=== PATIENT | female | born 1955 | race Caucasian/White ===

== ENCOUNTER → 2018-01-09 08:37 | Outpatient (CLI) | payer OTHER, SELFPAY ==
--- NOTE | 2018-01-09 08:40 | BI_ITS ---
MAMMOGRAPHY - BILATERAL SCREENING REASON FOR EXAM: Female, 62 years old. Routine annual screening examination. PERTINENT HISTORY: Aunt with breast cancer. TECHNIQUE: Digital bilateral breast yandel (3D mammographic acquisition) in the CC and MLO projections. 2-D mediolateral oblique (MLO) and craniocaudad (CC) views of both breasts were obtained. CAD: Full Field Digital Mammography with Computer Added Detection was performed. COMPARISON: Comparison is made with prior study dated December 28, 2016 and December 23, 2015. FINDINGS: Breast Composition: The breasts are almost entirely fatty. There are no dominant masses or suspicious calcifications. No other significant abnormalities are identified. There has been no significant change since the prior study. BI/SCREENING MAMM (CAD), BILAT IMPRESSION: Stable bilateral screening mammogram. Yearly follow-up mammogram recommended. (A) ASSESSMENT CATEGORY: BIRADS Category 1: Negative. A letter regarding these results will be sent to the patient by the facility within 30 days. Approximately 10% of breast cancers are not detected by mammography. A normal mammogram should not delay biopsy of a clinically suspicious abnormality. [id number] Electronically Signed: Salvador Chou MD at 9:06 EDT Tel [phone], Service support ,
== END ==
PROVIDERS: Family Provider Family Medicine; PCP Family Medicine; Visit Provider Family Medicine
DX: Z12.31 Encounter for screening mammogram for malignant neoplasm of breast (principal)
CPT/HCPCS: 77063; 77067

== ENCOUNTER → 2018-01-15 11:18 | Outpatient (CLI) | payer OTHER, SELFPAY ==
--- NOTE | 2018-01-15 15:55 | STRESSREP ---
Stress Test Report Exercise stress test. 62-year-old lady with a history of dyspnea. Medications hydrochlorothiazide levothyroxine omeprazole calcium coenzyme Q 10. Stress protocol: Resting EKG demonstrates sinus rhythm with a rate of 69 bpm first-degree AV block is noted. The patient exercised according to regular Zander protocol for total duration of 3 minutes. The maximum heart rate attained was 96 bpm which was 61% of maximum predicted heart rate the maximum workload was 4.6 metabolic equivalents. The patient maintained sinus rhythm and then appeared to go into a sinus rhythm with a 2-1 conduction heart block system. Patient was noted to get short of breath. During recovery patient went back into a sinus rhythm with a first-degree AV block with a rate of 60 bpm peaking at 6 83 bpm. Patient also appeared to developed a junctional rhythm at a rate of approximately 94 bpm. There were no ST or T-wave changes noted suggest ischemia. Conclusion 1. Exercise stress test with no EKG criteria for ischemia at a low to moderate workload. Exercise-induced 2-1 heart block.
== END ==
PROVIDERS: Family Provider Family Medicine; PCP Family Medicine; Visit Provider Internal Medicine Pulmonary Disease
DX: R06.00 Dyspnea, unspecified (principal)
CPT/HCPCS: 93017

== ENCOUNTER 2018-01-20 03:40 | Emergency (ER) | payer OTHER, SELFPAY ==
[2018-01-20 03:41] VITALS: BP 168/82; PULSE 59; RESP 15; TEMP 36.8; O2SAT 99; BMI 30.6
--- NOTE | 2018-01-20 03:47 | EKG12_ITS ---
Test Reason : CP Blood Pressure : / mmHG Vent. Rate : 057 BPM Atrial Rate : 057 BPM P-R Int : 310 ms QRS Dur : 088 ms QT Int : 444 ms P-R-T Axes : -12 029 048 degrees QTc Int : 432 ms Sinus bradycardia with 2:1 AV block Otherwise normal ECG Confirmed by KIMBERLY BILLINGS, BRAD ([id number]), newspaper or periodical editor ANTONINO RAMIREZ ([id number]) on 01/25/2018 3:35:06 PM Referred By: Robert Dodd Confirmed By:BRAD HARRIS MD
--- NOTE | 2018-01-20 03:50 | RAD_ITS ---
STUDY: X-RAY CHEST REASON FOR EXAM: Female, 62 years old. Chest pain TECHNIQUE: Single AP portable view of the chest. COMPARISON: None. FINDINGS: The lungs are clear and expanded. There is no demonstrated pleural abnormality. Normal size heart. Normal mediastinum and vishal. Normal visualized pulmonary arteries. Normal visualized aortic arch and descending thoracic aorta. Normal visualized thoracic spine. Normal visualized ribs, clavicles, and shoulders. There is no demonstrated abnormality of the visualized soft tissue structures of the upper abdomen. RAD/Chest 1 View (Portable) IMPRESSION: Normal x-ray examination of the chest. Electronically Signed: Rashida Cornelius MD at 4:08 EDT Tel , Service support ,
[2018-01-20 03:51] VITALS: PULSE 81; RESP 15; O2SAT 97
--- NOTE | 2018-01-20 03:52 | NURSING ---
NO OLD EKGS IN MUSE.
[2018-01-20] MEDS: Aspirin 81 MG TAB.CHEW 324 MG PO (03:57)
[2018-01-20] MEDS: 0.9% Normal Saline 1,000 ML 150 ML IV (03:57)
[2018-01-20 04:03] LABS: Absolute Lymphocyte Count 2.12 X10^3/ul (0.83-4.51); Absolute Neutrophil Count 3.8 X10^3/uL (2.0-7.7); Basophil# 0.02 X10^3/uL; Basophil% 0.3 % (0-1); Eosinophil# 0.17 X10^3/uL; Eosinophils% 2.4 % (0-5); Hematocrit 41.7 % (37-47); Hemoglobin 14.3 g/dl (12.0-15.0); Lymphocyte # 2.12 X10^3/ul (4.0); Lymphocyte % 29.9 % (19-41); Mean Corp Hgb Conc 34.3 g/gl (32-36); Mean Corpuscular Hgb 30.6 pg (27.0-32.0); Mean Corpuscular Volume 89.3 fL (81-99); Mean Platelet Vol. 10.7 fl (6.2-12.0); Monocyte# 0.97 X10^3/uL; Monocyte% 13.7 % (0-10); Neutrophil # 3.79 X10^3/uL (2.7-7.7); Neutrophil % 53.6 % (47-70); POSITIVE COUNT NO; POSITIVE DIFFERENTIAL NO; POSITIVE MORPHOLOGY NO; Platelet Count 265 K/mm3 (150-450); RBC Distribution Width CV 12.7 % (11.6-14.6); RBC Distribution Width SD 41.5 fl (35.1-43.9); Red Blood Count 4.67 M/mm3 (4.2-5.4); White Blood Count 7.1 K/mm3 (4.4-11.0)
[2018-01-20 04:16] LABS: Anion Gap 9 (5-15); BUN 13 mg/dL (7-18); BUN/Creat Ratio 14.3 RATIO (10-20); Calcium,Total 9.2 mg/dL (8.5-10.1); Chloride 105 mmol/L (98-107); Creatinine, Serum 0.91 mg/dL (0.55-1.02); EST Glomerular Filtration Rate 66 mL/min (>60); Est Glom Filt Rate - Afr Amer 80 mL/min (>60); Estimated Creatinine Clearance 47.75 ml/min; Glucose 119 mg/dL (74-106); Potassium 3.7 mmol/L (3.5-5.1); Sodium Level 143 mmol/L (136-145)
[2018-01-20 04:51] VITALS: BP 153/84; PULSE 72; RESP 19; O2SAT 96
--- NOTE | 2018-01-20 05:51 | ED.VISSUMM ---
- ER Visit Summary Date of Service: 01/20/18 Chief Complaint: Palpitations History of Present Illness: The patient is a [address] Sim. She reports that she had a stress test 4 days ago and was called by Dr. Castelan and told that she needs to have a pacemaker placed. She is scheduled for an appointment on January 31. Patient reports that at 1:00 this morning she was awakened from sleep by palpitations. She reports that she has a fullness on the right side of her chest that is 7 out of 10 at worst and 4-10 currently. Is worsened by exertion relieved by rest. She reports that she does feel slightly short of breath when she walks around and diaphoretic. However, she reports that she has had these symptoms ever since August. Review of systems: General: No fever, chills, cold sweats. Respiratory: No cough. Gastrointestinal: No abdominal pain, nausea, vomiting, diarrhea, melena, or hematochezia. Genitourinary: No dysuria, frequency, hematuria. Skin: No rash. Neuro: No headache, numbness, weakness. Physical Examination: Vitals: Stable. Afebrile. General: Well-nourished and well-developed. Head: Normocephalic atraumatic. Neck: Supple, no lymphadenopathy. No JVD. Nontender. Cardiovascular: Regular rate and rhythm. No murmurs. Respiratory: No respiratory distress. Clear to auscultation bilaterally. Abdominal: Soft, nontender, nondistended, normal bowel sounds. No guarding, rebound, or peritoneal signs. Back: Nontender. Extremities: Nontender, no edema. Skin: Normal color, no rash. Neurologic: Alert and oriented ?3. Cranial nerves II through XII are intact. Normal strength and sensation. Psych: Normal affect. Test Results: EKG is sinus with a first-degree AV block rate of 57. Her NM interval is 310. She has 2-1 atrial/ventricular conduction. There are no ST changes. Troponin is negative. Chem-7 is more for glucose of 119. CBC is more for monocytes 14. Chest x-ray is normal. Emergency Department Course and Treatment: During her stay and emerge department the patient was in 2-1 AV conduction intermittently with a rate in the 50s-60s. She would have episodes where it appeared that she had a junctional rhythm in the 90s. She rested comfortably. Treatment Plan: Patient was discussed with Dr. Castelan. He is familiar with her rhythm and feels that it is okay for her to go on vacation in follow-up from January 31 as scheduled. Patient is happy with this plan. Again she has had symptoms similar to this since August. Return to the emergency department for any worsening symptoms. Disposition: To home in improved and stable condition. Impression: 1. First-degree AV block with 2-1 atrial/ventricular conduction. 2. Junctional tachycardia. This note was generated with [employer] software. It may contain incorrect words, spelling, and punctuation that were not noted in review of the chart prior to signing ED Disposition - Plan for ED Patient: Disposition: Home or Assisted Living Chief Complaint: Chest Pain Instructions: ED Palpitations Referrals: Low Castelan MD [STAFF PHYSICIAN] - 01/31/18
[2018-01-20 06:01] VITALS: BP 145/96; PULSE 71; RESP 12; O2SAT 96
[2018-01-20 06:02] VITALS: BP 145/96; PULSE 71; RESP 12; O2SAT 96
== END 2018-01-20 06:02 | disposition home or self-care (01) ==
PROVIDERS: Emergency Provider Emergency Medicine; Family Provider Family Medicine; PCP Family Medicine
DX: I44.0 Atrioventricular block, first degree (principal); I47.1 Supraventricular tachycardia; I10 Essential (primary) hypertension; Z79.82 Long term (current) use of aspirin; Z79.899 Other long term (current) drug therapy
CPT/HCPCS: 71045; 80048; 84484; 85025; 93005; 96360; 96361; 99284; J7030; A4216

== ENCOUNTER → 2018-02-01 08:57 | Day surgery (SDC) | payer OTHER, SELFPAY ==
[2018-01-31 11:34] LABS: Mucous, Urine 0 SEEN /hpf (<or=2+); Red Blood Cells-Urine 0 SEEN /hpf (0-5)
[2018-01-31 12:30] LABS: Color, Urine Yellow (Yellow); Glucose, Dipstick Normal (Normal); Ketone-Dipstick Negative (Negative); Leukocyte Esterase-Dipstick 100 /ul (Negative); Nitrite-Dipstick Negative (Negative); Occult Blood-Urine Negative /ul (Negative); Protein-Dipstick Negative (Negative); Specific Gravity, Urine 1.005 (1.002-1.030); Urine Bilirubin Dipstick Negative (Negative); Urine Clarity Sl. Cloudy (Clear); Urine Urobilinogen Normal (Normal)
[2018-01-31 12:58] LABS: Bacteria RARE /hpf (None Seen); Squamous Epithelial Cells - UA 0-5 SEEN /hpf (5-10); White Blood Cells 0-5 SEEN /hpf (0-5)
[2018-01-31 13:18] VITALS: BMI 30.4
--- NOTE | 2018-02-01 08:59 | ECHOD_ITS ---
Reason For Study: SOB Procedure This was a 2D Doppler, Color Flow transthoracic echocardiogram. Exam performed in department. Left Ventricle Normal LV size. Left ventricular systolic function is normal. The estimated ejection fraction is 70 %. Unable to assess diastolic dysfunction due to arrhythmia. No regional wall motion abnormalities noted. Right Ventricle Normal RV size. Normal systolic function. Atria Normal left atrium. Normal right atrium. Mitral Valve Normal mitral valve. Mild (1+) eccentric mitral valve insufficiency. Tricuspid Valve Normal tricuspid valve. Mild tricuspid valve insufficiency. Pulmonary artery systolic pressure is 18 mmHg. Aortic Valve Normal aortic valve. Mild (1+) eccentric aortic valve insufficiency. Pulmonic Valve Normal pulmonic valve. Great Vessels Normal aortic root. The pulmonary artery is normal size. Normal inferior vena cava. Pericardium/Pleural No pericardial effusion. MMode/2D Measurements & Calculations LVIDd: 3.1 cm IVSd: 1.4 cm Ao root diam: 2.7 cm LVIDs: 1.4 cm LVPWd: 0.95 cm LA dimension: 3.2 cm RVDd: 2.5 cm FS: 53.6 % LAV(MOD-bp): 30.1 ml EDV(MOD-sp4): 48.6 ml EDV(MOD-sp2): 55.1 ml LAV(MOD-bp) Indexed: 17.5 ml/m2 ESV(MOD-sp4): 14.8 ml EF(MOD-sp2): 73.0 % LAV(MOD-sp2): 29.9 ml EF(MOD-sp4): 69.4 % LAV(MOD-sp4): 27.7 ml SV(MOD-sp4): 33.7 ml SV(MOD-sp2): 40.2 ml LA A4 area: 12.2 cm2 RA A4 area: 11.3 cm2 Doppler Measurements & Calculations MV E max nathanael: 144.4 cm/sec Lat Peak E' Nathanael: 16.9 cm/sec Med Peak E' Nathanael: 17.1 cm/sec E/E' lat: 8.6 E/E' med: 8.4 Ao V2 max: 135.8 cm/sec LV V1 max: 116.4 cm/sec PA V2 max: 111.5 cm/sec Ao max P.4 mmHg LV V1 max P.4 mmHg TR max nathanael: 195.3 cm/sec TR max P.3 mmHg Interpretation Summary Normal LV size. Left ventricular systolic function is normal. The estimated ejection fraction is 70 %. Unable to assess diastolic dysfunction due to arrhythmia. Pulmonary artery systolic pressure is 18 mmHg. Ordering Physician: Low Castelan Referring Physician: Kelsey Sim M.D. Performed By: Jessica Sampson RDCS
--- NOTE | 2018-02-01 11:07 | CL.D_ITS ---
Patient Name: AUREA LANG Study Date: 02/01/2018 Performing: Low Castelan MD Ht: 61.02 inches 155 cm : 1955 Wt: 160.94 lbs 73 kg Age: 63 Gender: female BSA: 1.72 PROCEDURE(S) PERFORMED [id number]/LV CLINICAL PROFILE AND INDICATIONS Indications: Other Heart Failure: None Stress/Imaging Standard Exercise Stress Test: Yes Result: Negative CAD Presentations: No Sxs, no angina. CONCLUSIONS Minimal coronary artery disease RECOMMENDATIONS For pacemaker placement. DESCRIPTION OF PROCEDURE The patient arrived to the procedure lab. The risks and benefits of the procedure as well as a full d escription of our services here and current unavailability of surgical backup were fully explained to the patient and/or their significant other prior to the catheterization. The Timeout was completed, verifying the correct patient and procedure. The patient's procedural site was prepped and draped in the usual fashion. Local anesthetic was given subcutaneously to right radial region with Lidocaine 2% . Using a modified Seldinger technique, arterial access was obtained via the right radial artery, a 6 Fr sheath was inserted. Left Coronary Artery selective angiography was performed in multiple views u sing a 5 Fr. 4.0 Ethel catheter. Right Coronary Artery selective angiography was then performed in mu ltiple views using a 5 Fr. 4.0 Ethel catheter. Left Coronary Artery selective angiography was perform ed in multiple views using a 5 Fr. 4.0 Ethel catheter. Left Ventriculography was performed in SINHA pro jection using a 5 Fr. Pigtail catheter. LV to AO pullback pressures were then recorded.The arterial s vicenta was pulled and a TR Band was applied for hemostasis CORONARY ANGIOGRAPHY DOMINANCE: Right Dominant LEFT HEART ASSESSMENT Left Ventricular Ejection Fraction: by LV Gram 60 % Normal LV wall motion Normal Left Ventricular systolic function LEFT MAIN: 30 ostial % Stenosis LEFT ANTERIOR DECENDING ARTERY: Angiographically normal CIRCUMFLEX ARTERY: Angiographically normal RIGHT CORONARY ARTERY: PROX RCA: 30 % Stenosis COMPLICATIONS No Complications PROCEDURE MEDICATIONS Fentanyl 50 mcg IV Versed 1 mg IV Oxygen: 2 L/min via nasal cannula Heparin diluted in 23cc Heparinized saline. Patient given 10cc IA of this solution. 02/01/2018 10:45: 16 Verapamil 2.5mg, Ntg 100mcgs, 2000 units of Heparin diluted in 23cc Heparinized saline. Patient give n 10cc IA of this solution. 02/01/2018 10:45:16 SUMMARY OF HEMODYNAMIC DATA Time AIR REST ECG 09:53:45 AO 128/67 (95) SA 10:47:41 LV 118/4, 8 10:56:36 LV 121/5, 11 10:56:43 LV 125/5, 13 10:57:50 LV 132/6, 17 10:57:57 LVp 127/6, 16 10:58:00 AOp 127/68 (96) 10:58:05 Signed By oLw Castelan MD On 02/01/2018 12:24:49 PM Signed By Low Castelan MD On 02/01/2018 11:06:44 Low Castelan MD
== END ==
PROVIDERS: Family Provider Family Medicine; PCP Family Medicine; Visit Provider Internal Medicine Cardiovascular Disease
DX: I25.10 Atherosclerotic heart disease of native coronary artery without angina pectoris (principal); I44.1 Atrioventricular block, second degree; I10 Essential (primary) hypertension; E78.5 Hyperlipidemia, unspecified; E03.9 Hypothyroidism, unspecified; G47.33 Obstructive sleep apnea (adult) (pediatric); H54.40 Blindness, one eye, unspecified eye; H40.9 Unspecified glaucoma; E66.9 Obesity, unspecified; Z79.82 Long term (current) use of aspirin; Z79.1 Long term (current) use of non-steroidal anti-inflammatories (NSAID); Z79.899 Other long term (current) drug therapy
CPT/HCPCS: 81001; 93306; 93458; 99152; 99153; J7040; Q9967; C1769; C1894

== ENCOUNTER 2018-02-06 10:28 | Day surgery (SDC) | payer OTHER, SELFPAY ==
[2018-02-05 09:03] VITALS: BMI 30.4
[2018-02-06] VITALS (15 sets, daily range): BP systolic 124–151; BP diastolic 67–88; PULSE 63–101; RESP 16–18; TEMP 36.7–36.9; O2SAT 93–99
--- NOTE | 2018-02-06 13:49 | CL.IE_ITS ---
Patient: AUREA LANG Study Date: 02/06/2018 Performing: Low Castelan MD : 1955 Age: 63 Gender: female PROCEDURES PERFORMED [id number] PACER INSERT+DUAL LEADS INDICATIONS 2nd degree av block PROCEDURE DETAILS The patient was brought to the Catheterization Lab in the postabsorptive nonsedated state. Informed consent was obtained prior to the procedure. Incision was made to the left subclavicular area. Access was achieved and a guidewire was advanced into the left subclavian vein. A peel-away sheath was inse rted into the left subclavian vein. PPM ventricular lead was inserted / positioned to right ventricul ar apex. PPM ventricular lead testing performed. PPM ventricular lead testing performed. A peel-away sheath was inserted into the left subclavian vein. PPM atrial lead was inserted / positioned to the r ight atrial appendage. PPM atrial lead testing performed. The Atrial lead sutured in place with 3-0 S ilk. The Ventricular PM lead sutured in place with 3-0 Silk. Device pocket was irrigated with antibio tic. PPM generator was attached to the lead(s) and inserted into the pocket. The PPM generator was taylor tured in place with 3-0 Vicryl. Subcutaneous closure was completed with 3-0 Vicryl. Skin closure was completed with 4-0 Vicryl. Steri-strips applied to left subclavicular incision. The patient tolerate d the procedure well. Estimated Blood Loss: < 10 mls IMPLANTED / EX-PLANTED DEVICES IMPLANTED DEVICE(S): PPM Generator - Chute Greaser: PredPol, Model # l111 , Serial # [id number] PPM Atrial lead - Chute Greaser: PredPol, Model # 7740 , Serial # [id number] PPM Ventricular lead - Chute Greaser: PredPol, Model # 7741 , Serial # [id number] DEVICE PARAMETERS ATRIAL LEAD PARAMETERS: P wave (mV) - 2.5 Current (mA) - 0.8 threshold (V) - 0.5 impedence (OHMS) - 681 VENTRICULAR LEAD PARAMETERS: R wave (mV) - 24.9 current (mA) - 0.6 threshold (V) - 0.6 impedence (OHMS) - 1046 DEVICE PARAMETERS: Mode - ddd lower rate - 60 upper rate - 130 CONCLUSIONS / RECOMMENDATIONS Device Conclusions: Successful implantation of a dual chamber pacemaker Device Recommendations: follow up with heart group PROCEDURE MEDICATIONS Fentanyl 50 mcg IV Versed 1 mg IV Versed 1 mg IV Fentanyl 25 mcg IV Oxygen: 2 L/min via nasal cannula Ancef 2 Gm IV @ 02/06/2018 12:07:09 Signed By Low Castelan MD On 02/06/2018 13:49:09 Low Castelan MD
--- NOTE | 2018-02-06 17:04 | CHAPLAIN ---
Type of Pastoral Visit _x__ Initial Visit ___ Follow-up Visit ___ On-call Visit ___ General Patient Visit ___ Spiritual Assessment ___ Family Conference ___ Bereavement ___ Rapid Response ___ Code Blue ___ Other (describe below) Pastoral Care Referral From _x__ Patient _x__ Family ___ Nurse ___ Physician ___ Civil Engineering Design Draftsperson ___ Insecticide Maker ___ Other (describe below) Sacrament/Intervention _x__ Active listening ___ Anointing ___ Episcopal ___ Bereavement ___ Communion ___ Sheron exploration ___ _x__ Life review _x__ Prayer ___ Reconciliation ___ Sacrament of Sick _x__ Supportive presence ___ Wedding ___ Other (describe below) Pastoral Comments
[2018-02-06] MEDS: Atorvastatin Calcium 20 MG Tablet PO (22:01)
[2018-02-06] MEDS: Acetaminophen 325 MG Tablet PO (22:09)
[2018-02-06] MEDS: DiphenhydrAMINE 25 MG Capsule PO (22:09)
[2018-02-07 03:00] VITALS: PULSE 64
[2018-02-07 03:49] VITALS: BP 160/87; PULSE 76; RESP 18; TEMP 36.5; O2SAT 94
--- NOTE | 2018-02-07 05:30 | RAD_ITS ---
STUDY: X-RAY CHEST REASON FOR EXAM: Female, 63 years old. Pacemaker placement. TECHNIQUE: Inspiration expiration views. COMPARISON: Comparison is made with prior study dated December 26, 2017. FINDINGS: A left-sided dual-chamber pacemaker is seen. The leads appear to be in good position. EKG electrodes are seen. The lungs are clear and expanded. There is no demonstrated pleural abnormality. There is no evidence of pneumothorax. Normal size heart. Normal mediastinum and vishal. Normal visualized pulmonary arteries. Normal visualized aortic arch and descending thoracic aorta. Normal visualized thoracic spine. Normal visualized ribs, clavicles, and shoulders. There is no demonstrated abnormality of the visualized soft tissue structures of the upper abdomen. RAD/Chest PA and Lateral IMPRESSION: Status post placement of a left-sided dual-chamber pacemaker. The leads are in good position. There is no evidence of pneumothorax. Electronically Signed: Salvador Chou MD at 9:34 EDT Tel [phone], Service support ,
[2018-02-07] MEDS: Levothyroxine 75 MCG Tablet PO (05:40)
[2018-02-07 06:54] VITALS: PULSE 72
--- NOTE | 2018-02-07 08:05 | PCM.PN.CARD ---
Subjectve: Patient seen and evaluated. Appears to be doing well. Objective: Vital Signs Temp Pulse Resp BP Pulse Ox 97.7 F L 72 18 160/87 H 94 02/07/18 03:49 02/07/18 06:54 02/07/18 03:49 02/07/18 03:49 02/07/18 03:49 Oxygen Delivery Method Room Air Weight: 161 lb Body Mass Index (BMI) 30.4 Intake and Output for Last 24 Hours 02/05/18 02/06/18 02/07/18 23:59 23:59 23:59 Intake Total 375 / 375 Balance 375 / 375 General: Awake, Alert, Oriented x 3 HEENT: PERRL, EOMI, Sclera Non Icteric Neck: Supple, Good ROM, No Lymph Node Enlargement Lungs: Clear to auscultation Cardiovascular: Regular Rhythm, Normal S1, Normal S2, No Murmurs, No Rubs, No Gallops Vascular: No Carotid Bruits, Normal Femoral Pulses, Normal Radial Pulses, Normal Dorsalis Pedal Pulse, Normal Posterior Tibial Pulses Abdomen: Bowel Sounds Present, Soft, Non Tender, No HSM, No Organomegaly Extremities: No Cyanosis, No Clubbing, No edema Neurological: No Focal Motor or Sensory Deficit Rhythm: EKG: ECHO: Stress Test: Cardiac Cath: PCI: CT Surgery: Holter monitor: EPS: PPM: CXR: Chest CT Scan: Medical Necessity - Tobacco Use Smoking Status: Never smoker Assessment/Plan 1. Status post pacemaker placement. Patient had intermittent 2-1 AV block and underwent successful dual-chamber pacemaker placement yesterday. Chest x-ray today demonstrates adequate placement and pacemaker check appears to suggest normal function. Patient will be discharged for outpatient follow-up.
--- NOTE | 2018-02-07 08:06 | PCM.DC.PACE ---
Discharge Diet: No Restrictions Discharge Activity: May Not Drive Call your doctor if your incision/area has: Continuous Slow Oozing, Sudden Increased Bleeding, Increased Pain/ Swelling, Increased Redness, Foul Smelling Discharge, Swelling at the incision site Call your doctor if you observe: Fever of 101 or Higher, Shortness of breath, Dizziness, Fainting spells, Swelling in the ankles, Chest pain, Prolonged hiccoughing, Increased palpitations (irregular heartbeat) Change Dressing in (Days):: 3 Remove Dressing in (days):: 3 Cleanse incision/area with: Do not get Incision Wet, Keep Dressing Clean & Dry Additional Dressing/Incision Instructions:: When dressing is removed, wash and dry incision. Keep covered with a light bandage if it is rubbing against your clothing. Do not cover the incision with an airtight bandage. Change the bandage daily. Do not remove steri strips. The strips will fall off on their own. Additional Instructions: Signs and Symptoms to Report to Your Doctor at Once - call your doctor's office or Doctor's Registry ([phone]) Call 911 or go to the nearest Emergency Department if you feel you need urgent care. *Infection (fever, increased redness or swelling at the incision site, drainage from the incision increased pain at the pacemaker site) *Shortness of breath *Dizziness *Fainting spells *Swelling in the ankles *Chest pain *Prolonged hiccoughing *Increased palpitaitons (irregular heartbeat) Medications: Take your pain medication as directed. Refer to your discharge instruction sheet for a list of medications you are to take. Allergies/Adverse Reactions: Allergies nitrofurantoin [From Macrodantin] Adverse Reaction (Verified 02/05/18 09:04) Other Medications to take at Discharge Albuterol IH (ProAir) [Proair Hfa (SP)Vent Pts] 2 puff INHALATION Q6H PRN PRN 01/20/18 Aspirin 81 mg PO DAILY 01/20/18 Atorvastatin Calcium 20 mg PO QHS 01/20/18 Cetirizine HCl [All Day Allergy] 10 mg PO DAILY 01/20/18 Cholecalciferol (Vitamin D3) [Vitamin D3] 1,000 unit PO DAILY 01/20/18 Co Q10 200 [Co Q-10] 200 mg PO DAILY 01/20/18 Cyanocobalamin (Vitamin B-12) [Vitamin B-12] 1,000 mcg PO DAILY 01/20/18 DiphenhydrAMINE [Benadryl] 25 mg PO QHS PRN PRN 01/20/18 Levothyroxine [Synthroid] 75 mcg PO DAILY 01/20/18 Lorazepam [Ativan] 0.5 mg PO DAILY PRN PRN 01/20/18 Lutein 40 mg PO DAILY 01/20/18 Multivitamin [Daily Multiple Vitamin] 1 ea PO DAILY 01/20/18 Naproxen Sodium 220 mg PO DAILY PRN 01/20/18 [place] 3-6-9 Complex Softgel 1 tab PO DAILY 01/20/18 Omeprazole [Prilosec] 20 mg PO QODAY 01/20/18 calcium carb-Ca gluc 500 mg calcium-magnesium ox-Mg gluc 250 mg tablet 2 tab PO DAILY 01/31/18 hydrochlorothiazide 25 mg tablet 25 mg PO DAILY tab 01/31/18 Primary Care Physician: Kelsey Sim MD [Primary Care Provider] - Test Results: Test results from this visit will be discussed in further detail at your follow-up appointment, if applicable. When: pacer nurse jordi 16 february 10 am Proposed Discharge Date: 02/07/18
[2018-02-07 08:30] VITALS: BP 153/78; PULSE 77; RESP 18; TEMP 36.3; O2SAT 94
== END 2018-02-07 08:46 | disposition home or self-care (01) ==
LOC: CLSP 10:28 → PCU 14:28
PROVIDERS: Family Provider Family Medicine; PCP Family Medicine; Visit Provider Internal Medicine Cardiovascular Disease
DX: I44.1 Atrioventricular block, second degree (principal); Z45.018 Encounter for adjustment and management of other part of cardiac pacemaker; I10 Essential (primary) hypertension; E78.5 Hyperlipidemia, unspecified; E03.9 Hypothyroidism, unspecified; G47.33 Obstructive sleep apnea (adult) (pediatric); H54.62 Unqualified visual loss, left eye, normal vision right eye; H40.9 Unspecified glaucoma; Z79.82 Long term (current) use of aspirin; Z79.1 Long term (current) use of non-steroidal anti-inflammatories (NSAID); Z79.899 Other long term (current) drug therapy
CPT/HCPCS: 33208; 71046; 99152; 99153; J7040; J7050; C1894

== ENCOUNTER → 2019-01-10 08:33 | Outpatient (CLI) | payer OTHER, SELFPAY ==
--- NOTE | 2019-01-10 08:36 | BI_ITS ---
MAMMOGRAPHY - BILATERAL SCREENING REASON FOR EXAM: Female, 63 years old. Routine annual screening examination. PERTINENT HISTORY: Aunt with breast cancer. TECHNIQUE: Digital bilateral breast cori (3D mammographic acquisition) in the CC and MLO projections. 2-D mediolateral oblique (MLO) and craniocaudad (CC) views of both breasts were obtained. CAD: Full Field Digital Mammography with Computer Added Detection was performed. COMPARISON: Comparison is made with prior study dated January 09, 2018 and December 28, 2016. FINDINGS: Breast Composition: The breasts are almost entirely fatty. There are no dominant masses or suspicious calcifications. A battery pack from a pacemaker is seen in the left axillary region. No other significant abnormalities are identified. There has been no significant change since the prior study. BI/SCREEN MAMM (CAD) W/CORI BILAT IMPRESSION: Stable bilateral screening mammogram. Yearly follow-up mammogram recommended. (A) ASSESSMENT CATEGORY: BIRADS Category 2: Benign. A letter regarding these results will be sent to the patient by the facility within 30 days. Approximately 10% of breast cancers are not detected by mammography. A normal mammogram should not delay biopsy of a clinically suspicious abnormality. [id number] Electronically Signed: Salvador Chou, at 11:20 EDT , Service support ,
== END ==
PROVIDERS: Family Provider Family Medicine; PCP Family Medicine; Referring Provider Family Medicine; Visit Provider Family Medicine
DX: Z12.31 Encounter for screening mammogram for malignant neoplasm of breast (principal)
CPT/HCPCS: 77063; 77067

== ENCOUNTER → 2019-02-05 09:43 | Outpatient (CLI) | payer MEDICARE, OTHER, SELFPAY ==
[2018-05-08 14:06] VITALS: BMI 30.9
[2019-02-05 12:49] LABS: Anion Gap 9 (5-15); BUN 12 mg/dL (7-18); BUN/Creat Ratio 15.6 RATIO (10-20); Calcium,Total 9.1 mg/dL (8.5-10.1); Chloride 105 mmol/L (98-107); Creatinine, Serum 0.77 mg/dL (0.55-1.02); EST Glomerular Filtration Rate 80 mL/min (>60); Est Glom Filt Rate - Afr Amer 97 mL/min (>60); Glucose 135 mg/dL (74-106); Potassium 3.9 mmol/L (3.5-5.1); Sodium Level 141 mmol/L (136-145)
[2019-07-09 09:26] VITALS: BMI 30.9
== END ==
PROVIDERS: Family Provider Family Medicine; PCP Family Medicine; Referring Provider Family Medicine; Visit Provider Family Medicine
DX: I10 Essential (primary) hypertension (principal)
CPT/HCPCS: 36415; 80048

== ENCOUNTER → 2019-07-26 10:35 | Outpatient (CLI) | payer MEDICARE, OTHER, SELFPAY ==
[2019-07-09 09:26] VITALS: BMI 30.9
[2019-07-26 13:40] LABS: Anion Gap 7 (5-15); BUN 12 mg/dL (7-18); BUN/Creat Ratio 14.2 RATIO (10-20); Calcium,Total 9.4 mg/dL (8.5-10.1); Chloride 107 mmol/L (98-107); Creatinine, Serum 0.84 mg/dL (0.55-1.02); EST Glomerular Filtration Rate 72 mL/min (>60); Est Glom Filt Rate - Afr Amer 87 mL/min (>60); Glucose 82 mg/dL (74-106); Potassium 3.9 mmol/L (3.5-5.1); Sodium Level 141 mmol/L (136-145); T4 Total, Thyroxin 12.7 ug/dL (4.8-13.9); Thyroid Stim Hormone (TSH) 0.41 uIU/mL (0.358-3.74)
[2019-07-30 14:27] LABS: HPV Reflexed? NOT INDICATED
== END ==
PROVIDERS: Family Provider Family Medicine; PCP Family Medicine; Referring Provider Family Medicine; Visit Provider Family Medicine
DX: Z01.419 Encounter for gynecological examination (general) (routine) without abnormal findings (principal); I10 Essential (primary) hypertension; E03.9 Hypothyroidism, unspecified
CPT/HCPCS: 36415; 80048; 84436; 84443; 88175; G0145

== ENCOUNTER → 2020-01-21 10:29 | Outpatient (CLI) | payer MEDICARE, OTHER, SELFPAY ==
[2019-07-09 09:26] VITALS: BMI 30.9
--- NOTE | 2020-01-21 10:32 | BI_ITS ---
MAMMOGRAPHY - BILATERAL SCREENING REASON FOR EXAM: Female, 64 years old. Routine annual screening examination. PERTINENT HISTORY: Aunt with breast cancer. TECHNIQUE: Digital bilateral breast cori (3D mammographic acquisition) in the CC and MLO projections. 2-D mediolateral oblique (MLO) and craniocaudad (CC) views of both breasts were obtained. CAD: Full Field Digital Mammography with Computer Added Detection was performed. COMPARISON: Comparison is made with prior study dated January 10, 2019 and January 09, 2018. FINDINGS: Breast Composition: The breasts are almost entirely fatty. There are no dominant masses or suspicious calcifications. Stable benign-appearing bilateral axillary lymph nodes. Once again, a battery pack from a pacemaker is seen in the left axillary region. No other significant abnormalities are identified. There has been no significant change since the prior study. BI/SCREEN MAMM (CAD) W/CORI BILAT IMPRESSION: Stable bilateral screening mammogram. Yearly follow-up mammogram recommended. (A) ASSESSMENT CATEGORY: BIRADS Category 2: Benign. A letter regarding these results will be sent to the patient by the facility within 30 days. Approximately 10% of breast cancers are not detected by mammography. A normal mammogram should not delay biopsy of a clinically suspicious abnormality. [id number] Electronically Signed: Salvador Chou, at 13:10 EDT , Service support ,
--- NOTE | 2020-01-21 10:33 | BD_ITS ---
STUDY: DUAL ENERGY X-RAY ABSORPTIOMETRY / DXA REASON FOR EXAM: Female, 64 years old. RECEIVING MANAGER -- TAKES THYROID MEDICATION -- TAKES HCTZ IN BP MED -- TAKES CALCIUM AND MULTIVITAMIN -- DOES LITTLE EXERCISE -- FAMILY HX OF OSTEO -MOTHER -- LANDY OF 1 INCH TECHNIQUE: Bone Mineral Density (BMD) measurements of lumbar spine and bilateral hips were obtained. COMPARISON: Comparison is made with prior study dated December 28, 2016. FINDINGS: Lumbar Spine (L1-L4): g/cm2 (1.018) / T-score (-1.3) / Z-score (0.3) Findings are suggestive of osteopenia with a low fracture risk. Left Femur Total: g/cm2 (0.867) / T-score (-1.1) / Z-score (0.1) Left Femoral Neck: g/cm2 (0.789) / T-score (-1.8) / Z-score (-0.3) Right Femur Total: g/cm2 (0.875) / T-score (-1.1) / Z-score (0.2) Right Femoral Neck: g/cm2 (0.806) / T-score (-1.7) / Z-score (-0.2) The T-Scores on the most recent prior examination were: Lumbar Spine (L1-L4): There has been worsening of bone density since the previous examination. Left Femur Total: which represents a worsening of 1.8%. Right Femur Total: which represents a worsening of 2.1%. BD/Dexa Bone Density Study IMPRESSION: The patient is considered osteopenic as outlined below according to World William Organization (WHO) criteria with a moderate fracture risk. There has been worsening of bone density since the previous examination. Reference Information: The T-score is the number of standard deviations above or below the standard which is normal for young adults at their peak bone mineral density. The World Health Organization (WHO) interprets the T-scores as follows: Above -1 Normal bone density Between -1 and -2.5 Osteopenia Equal to / or below -2.5 Osteoporosis As a practical clinical guideline, osteopenia may be graded as follows: Mild -1 through -1.5 Moderate -1.6 through -2.0 Severe -2.1 through -2.4 The Z-score is the number of standard deviations above or below age-matched controls. A Z-score of less than -1.5 would be considered abnormal. References: 1. NIH Osteoporosis and Related Bone Diseases http://www.osteo.org 2. International Society for Clinical Densitometry http://www.iscd.org 3. National Osteoporosis Foundation http://www.nof.org Electronically Signed: Salvador Chou, at 15:57 EDT , Service support ,
== END ==
PROVIDERS: Family Provider Family Medicine; PCP Family Medicine; Referring Provider Family Medicine; Visit Provider Family Medicine
DX: N95.9 Unspecified menopausal and perimenopausal disorder (principal); Z12.31 Encounter for screening mammogram for malignant neoplasm of breast
CPT/HCPCS: 77063; 77067; 77080

== ENCOUNTER → 2020-01-27 10:02 | Outpatient (CLI) | payer MEDICARE, OTHER, SELFPAY ==
[2019-07-09 09:26] VITALS: BMI 30.9
[2020-01-27 13:46] LABS: Anion Gap 6 (5-15); BUN 11 mg/dL (7-18); BUN/Creat Ratio 13.5 RATIO (10-20); Chloride 104 mmol/L (98-107); Creatinine, Serum 0.82 mg/dL (0.55-1.02); EST Glomerular Filtration Rate 75 mL/min (>60); Est Glom Filt Rate - Afr Amer 90 mL/min (>60); Glucose 94 mg/dL (74-106); Potassium 4.2 mmol/L (3.5-5.1); Sodium Level 139 mmol/L (136-145)
== END ==
PROVIDERS: PCP Family Medicine; Visit Provider Family Medicine
DX: I10 Essential (primary) hypertension (principal)
CPT/HCPCS: 36415; 80048

== ENCOUNTER → 2020-07-09 09:05 | Outpatient (CLI) | payer MEDICARE, OTHER, SELFPAY ==
[2020-07-09 08:23] VITALS: BMI 32.0
[2020-07-09 09:58] LABS: AST(SGOT) 23 U/L (15-37); Alanine Aminotransfer ALT/SGPT 47 U/L (13-56); Albumin, Serum 3.8 g/dL (3.2-5.0); Alkaline Phosphatase 109 U/L (45-117); Bilirubin, Direct 0.12 mg/dL (0.00-0.30); Cholesterol 156 mg/dL (200); Globulin 4.1 g/dL (2.2-4.2); High Density Lipoprotein 63 mg/dL; Protein, Total 7.9 g/dL (6.4-8.2); Triglycerides 121 mg/dL; Very Low Density Lipoprotein 24 mg/dL (5-40)
== END ==
PROVIDERS: PCP Family Medicine; Referring Provider Physician Assistant Medical; Visit Provider Physician Assistant Medical
DX: I10 Essential (primary) hypertension (principal); E78.5 Hyperlipidemia, unspecified
CPT/HCPCS: 36415; 80061; 80076

== ENCOUNTER → 2020-11-18 10:32 | Outpatient (CLI) | payer MEDICARE, OTHER, SELFPAY ==
[2020-07-09 08:23] VITALS: BMI 32.0
[2020-11-18 12:38] LABS: AST(SGOT) 24 U/L (15-37); Alanine Aminotransfer ALT/SGPT 36 U/L (13-56); Anion Gap 6 (5-15); BUN 9 mg/dL (7-18); BUN/Creat Ratio 11.5 RATIO (10-20); Calcium,Total 8.7 mg/dL (8.5-10.1); Chloride 101 mmol/L (98-107); Cholesterol 154 mg/dL (200); Creatinine, Serum 0.79 mg/dL (0.55-1.02); EST Glomerular Filtration Rate 78 mL/min (>60); Est Glom Filt Rate - Afr Amer 94 mL/min (>60); Glucose 87 mg/dL (74-106); High Density Lipoprotein 64 mg/dL; Potassium 3.9 mmol/L (3.5-5.1); Sodium Level 135 mmol/L (136-145); T4 Total, Thyroxin 13.1 ug/dL (4.8-13.9); Thyroid Stim Hormone (TSH) 0.74 uIU/mL (0.358-3.74); Triglycerides 111 mg/dL; Very Low Density Lipoprotein 22 mg/dL (5-40)
== END ==
PROVIDERS: PCP Family Medicine; Referring Provider Family Medicine; Visit Provider Family Medicine
DX: I10 Essential (primary) hypertension (principal); E03.9 Hypothyroidism, unspecified; E78.5 Hyperlipidemia, unspecified
CPT/HCPCS: 36415; 80048; 80061; 84436; 84443; 84450; 84460

== ENCOUNTER → 2020-11-20 16:44 | Outpatient (CLI) | payer MEDICARE, OTHER, SELFPAY ==
[2020-07-09 08:23] VITALS: BMI 32.0
--- NOTE | 2020-11-20 16:49 | US_ITS ---
STUDY: ULTRASOUND TRANSVAGINAL CLINICAL: Female, 65 years old. POST MENOPAUSAL BLEEDING TECHNIQUE: Transvaginal COMPARISON: None. FINDINGS: Normal uterine size measuring 8.1 x 4.9 x 3.8 cm in maximal craniocaudal dimension. Hypoechoic mass of the anterior uterine myometrium measures 1.1 x 1.3 cm. Endometrial thickness measures 6 mm with diffuse heterogeneity. There are no endometrial masses, and there is no fluid in the endometrial cavity. Normal uterine cervix. Right ovary is not visualized. Left ovary is not visualized. There is no free fluid in the pelvis. US/Transvaginal Non- IMPRESSION: 1. Mild thickening and moderate heterogeneity of the endometrial complex, considered abnormal for a postmenopausal female. Endometrial sampling suggested. 2. 1.3 cm myometrial fibroid. Electronically Signed: Ted Tripathi MD ([place]) at 11:44 EDT , Service support ,
== END ==
PROVIDERS: PCP Family Medicine; Referring Provider Family Medicine; Visit Provider Family Medicine
DX: N95.0 Postmenopausal bleeding (principal)
CPT/HCPCS: 76830

== ENCOUNTER → 2020-12-04 | Outpatient (CLI) | payer MEDICARE, OTHER, SELFPAY ==
[2020-07-09 08:23] VITALS: BMI 32.0
--- NOTE | 2020-12-04 | EMB_PTH ---
PATIENT: AUREA LANG LOC: [facility] U#:[id number] AGE/SX: 65/F ROOM: RE12/04/[address]: Dr. Luis Kimball MD : 1955 BED: DIS: 12/04/2020 SPEC #: [id number] RECD: 12/04/20 16:06 STATUS: LÓPEZ REQ #: [id number] GUILLERMO: 12/04/20 00:[address]: Luis Kimball DEPT: SURGICAL PATHOLOGY RECD BY: Eufemia Petersen ENTERED: 12/07/20 08:49 SP TYPE: ENDOM BX/C GLENIS DR: Dr. Kelsey Sim MD Tissues: Endometrium, NOS Procedures: Surgery Specimen Level IV HEADER OPERATION: Endometrial biopsy PRE-OP DIAGNOSIS: PMB N95.0 TISSUE SUBMITTED: Endometrial biopsy MICROSCOPIC DIAGNOSIS Endometrium, biopsy: Scant strips of benign superficial glandular tissue. AM:chaka 12/08/2020 MICROSCOPIC DESCRIPTION Slides are reviewed. GROSS DESCRIPTION Received in fixative is one container labeled with the patient's name and designated EMB. The specimen consists of multiple irregular fragments of amato-pink soft tissue that in aggregate measure 1.5 x 0.5 x 0.1 cm. The specimen is totally submitted in one cassette. / SJ:rg 12/07/20 TC:5 CPT: 39328
== END | disposition home or self-care (01) ==
LOC: LABSPEC 15:56
PROVIDERS: PCP Family Medicine; Visit Provider Obstetrics & Gynecology
DX: N95.0 Postmenopausal bleeding (principal)
CPT/HCPCS: 88305

== ENCOUNTER → 2021-01-26 10:11 | Outpatient (CLI) | payer MEDICARE, OTHER, SELFPAY ==
[2020-07-09 08:23] VITALS: BMI 32.0
--- NOTE | 2021-01-26 10:13 | BI_ITS ---
MAMMOGRAPHY - BILATERAL SCREENING REASON FOR EXAM: Female, 65 years old. Routine annual screening examination. PERTINENT HISTORY: Aunts with breast cancer. TECHNIQUE: Digital bilateral breast yandel (3D mammographic acquisition) in the CC and MLO projections. 2-D mediolateral oblique (MLO) and craniocaudad (CC) views of both breasts were obtained. CAD: Full Field Digital Mammography with Computer Added Detection was performed. COMPARISON: Comparison is made with prior study dated 01/21/2020 and 01/10/2019. FINDINGS: Breast Composition: The breasts are almost entirely fatty. There are no dominant masses or suspicious calcifications. A pacemaker battery pack is once again seen in the left axillary region No other significant abnormalities are identified. There has been no significant change since the prior study. BI/SCREENING MAMM (CAD), BILAT IMPRESSION: Stable bilateral screening mammogram. Yearly follow-up mammogram recommended. (A) ASSESSMENT CATEGORY: BIRADS Category 2: Benign. A letter regarding these results will be sent to the patient by the facility within 30 days. Approximately 10% of breast cancers are not detected by mammography. A normal mammogram should not delay biopsy of a clinically suspicious abnormality. [id number] Electronically Signed: Salvador Chou MD at 11:24 EDT , Service support ,
== END ==
PROVIDERS: PCP Family Medicine; Referring Provider Family Medicine; Visit Provider Family Medicine
DX: Z12.31 Encounter for screening mammogram for malignant neoplasm of breast (principal)
CPT/HCPCS: 77067

== ENCOUNTER → 2021-05-12 10:58 | Outpatient (CLI) | payer MEDICARE, OTHER, SELFPAY ==
[2021-05-12 12:10] LABS: Anion Gap 7 (5-15); BUN 12 mg/dL (7-18); BUN/Creat Ratio 13.4 RATIO (10-20); Calcium,Total 9.4 mg/dL (8.5-10.1); Chloride 104 mmol/L (98-107); Creatinine, Serum 0.89 mg/dL (0.55-1.02); EST Glomerular Filtration Rate 67 mL/min (>60); Est Glom Filt Rate - Afr Amer 81 mL/min (>60); Glucose 94 mg/dL (74-106); Potassium 4.1 mmol/L (3.5-5.1); Sodium Level 137 mmol/L (136-145)
== END ==
PROVIDERS: PCP Family Medicine; Referring Provider Family Medicine; Visit Provider Family Medicine
DX: I10 Essential (primary) hypertension (principal)
CPT/HCPCS: 36415; 80048

== ENCOUNTER → 2021-11-23 | Outpatient (CLI) | payer MEDICARE, OTHER, SELFPAY ==
[2021-11-23 12:47] LABS: AST(SGOT) 26 U/L (15-37); Alanine Aminotransfer ALT/SGPT 42 U/L (13-56); Anion Gap 6 (5-15); BUN 9 mg/dL (7-18); BUN/Creat Ratio 10.8 RATIO (10-20); Calcium,Total 8.6 mg/dL (8.5-10.1); Chloride 105 mmol/L (98-107); Cholesterol 154 mg/dL (200); Creatinine, Serum 0.83 mg/dL (0.55-1.02); EST Glomerular Filtration Rate 72 mL/min (>60); Est Glom Filt Rate - Afr Amer 88 mL/min (>60); Glucose 92 mg/dL (74-106); High Density Lipoprotein 59 mg/dL; Potassium 4.4 mmol/L (3.5-5.1); Sodium Level 139 mmol/L (136-145); T4 Total, Thyroxin 14.3 ug/dL (4.8-13.9); Thyroid Stim Hormone (TSH) 0.36 uIU/mL (0.358-3.74); Triglycerides 102 mg/dL; Very Low Density Lipoprotein 20 mg/dL (5-40)
== END | disposition home or self-care (01) ==
LOC: MFPLAB 10:33
PROVIDERS: PCP Family Medicine; Referring Provider Family Medicine; Visit Provider Family Medicine
DX: E78.5 Hyperlipidemia, unspecified (principal); E03.9 Hypothyroidism, unspecified; I10 Essential (primary) hypertension
CPT/HCPCS: 36415; 80048; 80061; 84436; 84443; 84450; 84460

== ENCOUNTER → 2022-01-27 | Outpatient (CLI) | payer MEDICARE, OTHER, SELFPAY ==
--- NOTE | 2022-01-27 08:07 | BI_ITS ---
MAMMOGRAPHY - BILATERAL SCREENING REASON FOR EXAM: Female, 66 years old. Routine annual screening examination. PERTINENT HISTORY: Mother with breast cancer. Aunt with breast cancer. TECHNIQUE: Digital bilateral breast cori (3D mammographic acquisition) in the CC and MLO projections. 2-D mediolateral oblique (MLO) and craniocaudad (CC) views of both breasts were obtained. CAD: Full Field Digital Mammography with Computer Added Detection was performed. COMPARISON: Comparison is made with prior study dated 01/21/2020 and 01/10/2019. FINDINGS: Breast Composition: The breasts are almost entirely fatty. There are no dominant masses or suspicious calcifications. A pacemaker battery pack is seen in the left axillary region. No other significant abnormalities are identified. There has been no significant change since the prior study. BI/SCRN MAMM (CAD)W/CORI BILAT IMPRESSION: Stable bilateral screening mammogram. Yearly follow-up mammogram recommended. (A) ASSESSMENT CATEGORY: BIRADS Category 2: Benign. A letter regarding these results will be sent to the patient by the facility within 30 days. Approximately 10% of breast cancers are not detected by mammography. A normal mammogram should not delay biopsy of a clinically suspicious abnormality. [id number] Electronically Signed: Salvador Chou MD at 8:52 EDT ,
== END | disposition home or self-care (01) ==
LOC: OPBI 08:05
PROVIDERS: PCP Family Medicine; Visit Provider Family Medicine
DX: Z12.31 Encounter for screening mammogram for malignant neoplasm of breast (principal); Z80.3 Family history of malignant neoplasm of breast
CPT/HCPCS: 77063; 77067

== ENCOUNTER → 2022-11-29 | Outpatient (CLI) | payer MEDICARE, OTHER, SELFPAY ==
[2022-11-29 12:39] LABS: Absolute Lymphocyte Count 1.89 X10^3/uL (0.83-4.51); Absolute Neutrophil Count 3.4 X10^3/uL (2.0-7.7); Basophil# 0.04 X10^3/uL; Basophil% 0.7 % (0-1); Eosinophil# 0.25 X10^3/uL; Eosinophils% 4.1 % (0-5); Hematocrit 40.7 % (37-47); Hemoglobin 13.6 g/dL (12.0-15.0); Lymphocyte # 1.89 X10^3/ul (0.83-4.51); Lymphocyte % 30.9 % (19-41); Mean Corp Hgb Conc 33.4 g/dL (32-36); Mean Corpuscular Hgb 31.1 pg (27.0-32.0); Mean Corpuscular Volume 93.1 fL (81-99); Mean Platelet Vol. 10.3 fl (6.2-12.0); Monocyte# 0.49 X10^3/uL; NRBC Flagged by Analyzer 0 % (0-5); Neutrophil # 3.43 X10^3/uL (2.7-7.7); Neutrophil % 56.1 % (47-70); Platelet Count 259 K/mm3 (150-450); RBC Distribution Width CV 12.6 % (11.6-14.6); Red Blood Count 4.37 M/mm3 (4.2-5.4); White Blood Count 6.1 K/mm3 (4.4-11.0)
[2022-11-29 13:21] LABS: Microalbumin,Random Urine < 5.0 mg/L (NO RANGE EST.)
[2022-11-29 13:25] LABS: ALB/GLOB Ratio 1.1 RATIO (0.9-2.4); AST(SGOT) 33 U/L (15-37); Alanine Aminotransfer ALT/SGPT 46 U/L (13-56); Alkaline Phosphatase 89 U/L (45-117); Anion Gap 8 (5-15); BUN 10 mg/dL (7-18); BUN/Creat Ratio 12.4 RATIO (10-20); Calcium,Total 9.7 mg/dL (8.5-10.1); Chloride 104 mmol/L (98-107); Cholesterol 170 mg/dL (200); Creatinine, Serum 0.81 mg/dL (0.55-1.02); EST Glomerular Filtration Rate 75 mL/min (>60); Est Glom Filt Rate - Afr Amer 91 mL/min (>60); Globulin 3.6 g/dL (2.2-4.2); Glucose 93 mg/dL (74-106); High Density Lipoprotein 62 mg/dL; Potassium 4.4 mmol/L (3.5-5.1); Protein, Total 7.6 g/dL (6.4-8.2); Sodium Level 140 mmol/L (136-145); T4 Total, Thyroxin 15.7 ug/dL (4.8-13.9); Thyroid Stim Hormone (TSH) 0.49 uIU/mL (0.358-3.74); Triglycerides 118 mg/dL; Very Low Density Lipoprotein 24 mg/dL (5-40)
== END | disposition home or self-care (01) ==
LOC: MTLAB 10:01
PROVIDERS: PCP Family Medicine; Referring Provider Family Medicine; Visit Provider Family Medicine
DX: Z01.812 Encounter for preprocedural laboratory examination (principal); I10 Essential (primary) hypertension; E78.5 Hyperlipidemia, unspecified; E03.9 Hypothyroidism, unspecified
CPT/HCPCS: 36415; 80053; 80061; 82043; 82570; 84436; 84443; 85025

== ENCOUNTER → 2023-02-07 | Outpatient (CLI) | payer MEDICARE, OTHER, SELFPAY ==
--- NOTE | 2023-02-07 10:18 | BI_ITS ---
MAMMOGRAPHY - BILATERAL SCREENING 3-D TOMOSYNTHESIS REASON FOR EXAM: Female, 68 years old. Routine screening PERTINENT HISTORY: Aunts with breast cancer.. TECHNIQUE: 2-D mammograms and 3-D Tomosynthesis of the breast (s) were performed. CAD was performed. COMPARISON: 01/26/2021 FINDINGS: The breast composition is composed of scattered fibroglandular density. Scattered benign calcifications are seen. No dense spiculated masses or suspicious microcalcifications are identified. No architectural distortion is identified. There is no skin thickening or retraction. There has been no significant change since the prior study. BI/SCRN MAMM (CAD)W/CORI BILAT IMPRESSION: No mammographic signs of malignancy. Routine yearly mammograms recommended. ASSESSMENT CATEGORY: BIRADS Category 1: Negative. A letter regarding these results will be sent to the patient by the facility within 30 days. FOLLOW UP RECOMMENDATION: Yearly follow up mammogram recommended. (A) Approximately 10% of breast cancers are not detected by mammography. A normal mammogram should not delay biopsy of a clinically suspicious abnormality. Electronically Signed: Luigi Escobar MD at 13:12 EDT ,
--- NOTE | 2023-02-07 10:26 | BD_ITS ---
STUDY: DUAL ENERGY X-RAY ABSORPTIOMETRY / DXA REASON FOR EXAM: Female, 68 years old. [id number] TECHNIQUE: Bone Mineral Density (BMD) measurements of lumbar spine and bilateral hips were obtained. COMPARISON: Comparison is made with prior study dated January 21, 2020. FINDINGS: Lumbar Spine (L1-L4): g/cm2 (0.873) / T-score (-1.3) / Z-score (0.7) Findings are suggestive of osteopenia with a low fracture risk. Left Femur Total: g/cm2 (0.845) / T-score (-0.8) / Z-score (0.7) Left Femoral Neck: g/cm2 (0.625) / T-score (-2.0) / Z-score (-0.3) Right Femur Total: g/cm2 (0.846) / T-score (-0.8) / Z-score (0.7) Right Femoral Neck: g/cm2 (0.617) / T-score (-2.1) / Z-score (by 0.4) The T-Scores on the most recent prior examination were: Lumbar Spine (L1-L4): There has been worsening of bone density since the previous examination. Left Femur Total: which represents an improvement of 5%. Right Femur Total: which represents an improvement of 4.1%. BD/Dexa Bone Density Study IMPRESSION: The patient is considered osteopenic as outlined below according to World William Organization (WHO) criteria with a moderate fracture risk. There has been improvement of bone density since the previous examination. Reference Information: The T-score is the number of standard deviations above or below the standard which is normal for young adults at their peak bone mineral density. The World Health Organization (WHO) interprets the T-scores as follows: Above -1 Normal bone density Between -1 and -2.5 Osteopenia Equal to / or below -2.5 Osteoporosis As a practical clinical guideline, osteopenia may be graded as follows: Mild -1 through -1.5 Moderate -1.6 through -2.0 Severe -2.1 through -2.4 The Z-score is the number of standard deviations above or below age-matched controls. A Z-score of less than -1.5 would be considered abnormal. References: 1. NIH Osteoporosis and Related Bone Diseases www osteo.org 2. International Society for Clinical Densitometry www iscd.org 3. National Osteoporosis Foundation www nof.org Electronically Signed: Salvador Chou MD at 15:04 EDT ,
== END | disposition home or self-care (01) ==
LOC: OPBD 10:17
PROVIDERS: PCP Family Medicine; Referring Provider Family Medicine; Visit Provider Family Medicine
DX: N95.9 Unspecified menopausal and perimenopausal disorder (principal); Z12.31 Encounter for screening mammogram for malignant neoplasm of breast
CPT/HCPCS: 77063; 77067; 77080

== ENCOUNTER → 2023-12-22 | Outpatient (CLI) | payer MEDICARE, OTHER, SELFPAY ==
[2023-12-22 13:07] LABS: AST(SGOT) 30 U/L (15-37); Alanine Aminotransfer ALT/SGPT 43 U/L (13-56); Anion Gap 7 (5-15); BUN 11 mg/dL (7-18); BUN/Creat Ratio 14.1 RATIO (10-20); Calcium,Total 9.3 mg/dL (8.5-10.1); Chloride 104 mmol/L (98-107); Cholesterol 167 mg/dL (200); Creatinine, Serum 0.78 mg/dL (0.55-1.02); EST Glomerular Filtration Rate 78 mL/min (>60); Est Glom Filt Rate - Afr Amer 94 mL/min (>60); Glucose 104 mg/dL (74-106); High Density Lipoprotein 65 mg/dL; Potassium 3.9 mmol/L (3.5-5.1); Sodium Level 137 mmol/L (136-145); T4 Total, Thyroxin 13.6 ug/dL (4.8-13.9); Thyroid Stim Hormone (TSH) 0.31 uIU/mL (0.358-3.74); Triglycerides 119 mg/dL; Very Low Density Lipoprotein 24 mg/dL (5-40)
== END | disposition home or self-care (01) ==
LOC: MFPLAB 10:01
PROVIDERS: PCP Family Medicine; Visit Provider Family Medicine
DX: I10 Essential (primary) hypertension (principal); E78.5 Hyperlipidemia, unspecified; E03.9 Hypothyroidism, unspecified
CPT/HCPCS: 36415; 80048; 80061; 84436; 84443; 84450; 84460

== ENCOUNTER → 2024-02-05 | Outpatient (CLI) | payer MEDICARE, OTHER, SELFPAY ==
--- NOTE | 2024-02-05 08:31 | BI_ITS ---
MAMMOGRAPHY - BILATERAL SCREENING REASON FOR EXAM: Female, 69 years old. Routine annual screening examination. PERTINENT HISTORY: Mother with breast cancer. Aunts with breast cancer. TECHNIQUE: Digital bilateral breast cori (3D mammographic acquisition) in the CC and MLO projections. 2-D mediolateral oblique (MLO) and craniocaudad (CC) views of both breasts were obtained. CAD: Full Field Digital Mammography with Computer Added Detection was performed. COMPARISON: Comparison is made with prior study February 07, 2023 and January 27, 2022. FINDINGS: Breast Composition: There are scattered areas of fibroglandular density. There are no dominant masses or suspicious calcifications. Stable benign-appearing right axillary lymph nodes. A battery pack from a pacemaker device is seen in the left axilla. No other significant abnormalities are identified. There has been no significant change since the prior study. BI/SCRN MAMM (CAD)W/CORI BILAT IMPRESSION: Stable bilateral screening mammogram. Yearly follow-up mammogram recommended. (A) ASSESSMENT CATEGORY: BIRADS Category 2: Benign. A letter regarding these results will be sent to the patient by the facility within 30 days. Approximately 10% of breast cancers are not detected by mammography. A normal mammogram should not delay biopsy of a clinically suspicious abnormality. [id number] Electronically Signed: Salvador Chou MD at 10:02 EDT ,
== END | disposition home or self-care (01) ==
LOC: OPBI 08:31
PROVIDERS: PCP Family Medicine; Referring Provider Family Medicine; Visit Provider Family Medicine
DX: Z12.31 Encounter for screening mammogram for malignant neoplasm of breast (principal)
CPT/HCPCS: 77063; 77067

== ENCOUNTER → 2024-03-01 | Outpatient (CLI) | payer MEDICARE, OTHER, SELFPAY ==
--- NOTE | 2024-03-01 09:38 | ECHOD_ITS ---
Reason For Study: AV BLOCK 2nd degree Procedure This was a 2D Doppler, Color Flow transthoracic echocardiogram. Exam performed in department. Left Ventricle Normal LV size. Left ventricular systolic function is normal. The left ventricular ejection fraction is 55 %. Stage 1 diastolic dysfunction. No regional wall motion abnormalities noted. Right Ventricle Normal RV size. ICD or pacer leads identified within the right ventricle. Normal systolic function. Tricuspid Valve Normal tricuspid valve. Mild tricuspid valve insufficiency. Pulmonary artery systolic pressure is 32 mmHg. Aortic Valve Trisinus/trileaflet aortic valve. Pulmonic Valve Normal pulmonic valve. Great Vessels Normal aortic root. The pulmonary artery is normal size. Normal inferior vena cava. Pericardium/Pleural No pericardial effusion. MMode/2D Measurements & Calculations LVIDd: 4.2 cm IVSd: 1.4 cm Ao root diam: 2.7 cm LVIDs: 2.7 cm LVPWd: 1.0 cm RVDd: 2.7 cm FS: 35.8 % LAV(MOD-bp): 45.4 ml LVAd ap4: 18.5 cm2 LVAd ap2: 19.6 cm2 LAV(MOD-bp) Indexed: 25.9 ml/m2 LVLd ap4: 6.0 cm LVLd ap2: 6.1 cm LAV(MOD-sp2): 44.9 ml EDV(MOD-sp4): 49.4 ml EDV(MOD-sp2): 52.6 ml LAV(MOD-sp4): 44.9 ml EDV(sp4-el): 48.7 ml EDV(sp2-el): 53.3 ml LVAs ap4: 9.7 cm2 LVAs ap2: 10.6 cm2 LVLs ap4: 4.7 cm LVLs ap2: 5.3 cm ESV(MOD-sp4): 18.0 ml ESV(MOD-sp2): 18.1 ml ESV(sp4-el): 16.8 ml ESV(sp2-el): 18.0 ml EF(MOD-sp4): 63.5 % EF(MOD-sp2): 65.6 % EF(sp4-el): 65.4 % SV(MOD-sp4): 31.4 ml SV(MOD-sp2): 34.5 ml SV(sp4-el): 31.8 ml LA A4 area: 16.3 cm2 LA dimension(2D): 3.5 cm RA A4 area: 10.4 cm2 TAPSE: 1.8 cm Time Measurements MV dec time: 0.10 sec Doppler Measurements & Calculations MV E max nathanael: 79.5 cm/sec Lat Peak E' Nathanael: 2.4 cm/sec Med Peak E' Nathanael: 6.3 cm/sec MV A max nathanael: 123.9 cm/sec E/E' lat: 33.6 E/E' med: 12.6 MV E/A: 0.64 MV V2 max: 130.3 cm/sec Ao V2 max: 137.3 cm/sec LV V1 max: 98.1 cm/sec MV max P.8 mmHg Ao max P.6 mmHg LV V1 max P.9 mmHg MV V2 mean: 79.9 cm/sec Ao V2 mean: 97.8 cm/sec LV V1 mean P.3 mmHg MV mean P.8 mmHg Ao mean P.3 mmHg LV V1 mean: 71.0 cm/sec MV V2 VTI: 25.8 cm Ao V2 VTI: 27.2 cm LV V1 VTI: 20.5 cm AV (velocity ratio): 0.76 PA V2 max: 124.4 cm/sec TR max nathanael: 268.4 cm/sec PA V2 mean: 88.9 cm/sec TR max P.8 mmHg ECHO/Echo Complete Interpretation Summary Normal LV size. Left ventricular systolic function is normal. The left ventricular ejection fraction is 55 %. Stage 1 diastolic dysfunction. Ordering Physician: Hortencia Nathan Referring Physician: Kelsey Sim Performed By: Sloane Sahni, DAVION, RVT
== END | disposition home or self-care (01) ==
LOC: CVS 09:38
PROVIDERS: PCP Family Medicine; Referring Provider Nurse Practitioner Gerontology; Visit Provider Nurse Practitioner Gerontology
DX: I44.1 Atrioventricular block, second degree (principal); I47.10 Supraventricular tachycardia, unspecified; Z95.0 Presence of cardiac pacemaker
CPT/HCPCS: 93306

== ENCOUNTER → 2024-12-23 | Outpatient (CLI) | payer MEDICARE, OTHER, SELFPAY ==
[2024-12-23 12:30] LABS: Hemoglobin A1c 6.1 % (<=5.6)
[2024-12-23 12:50] LABS: Cholesterol 150 mg/dL (<=200); High Density Lipoprotein 58 mg/dL; Low Density Lipoprotein Calc. 64 mg/dL; Thyroid Stim Hormone (TSH) 0.919 uIU/mL (0.300-4.200); Triglycerides 142 mg/dL; Very Low Density Lipoprotein 28 mg/dL (5-40); cholesterol:hdl ratio screen 2.59
== END | disposition home or self-care (01) ==
LOC: MTLAB 09:20
PROVIDERS: PCP Family Medicine
DX: Z13.1 Encounter for screening for diabetes mellitus (principal); E10.9 Type 1 diabetes mellitus without complications; Z13.6 Encounter for screening for cardiovascular disorders; Z13.29 Encounter for screening for other suspected endocrine disorder; Z13.220 Encounter for screening for lipoid disorders
CPT/HCPCS: 36415; 80061; 83036; 84443

== ENCOUNTER → 2025-02-11 | Outpatient (CLI) | payer MEDICARE, OTHER, SELFPAY ==
--- NOTE | 2025-02-11 07:22 | BI_ITS ---
EXAM: SCRN MAMM (CAD)W/CORI BILAT DATE: 02/11/2025 CLINICAL HISTORY: F, Age 70 y/o , BREAST CANCER SCREENING TECHNIQUE: SCRN MAMM (CAD)W/CORI BILAT COMPARISON: Prior exam(s) were compared. FINDINGS: TISSUE DENSITY: There are scattered areas of fibroglandular density. Bilateral Breast Mammographic Findings: No suspicious masses, calcifications or other abnormalities are identified. BI/SCRN MAMM (CAD)W/CORI BILAT IMPRESSION: No mammographic evidence of malignancy in either breast OVERALL FINAL ASSESSMENT BI-RADS 1: NEGATIVE. RECOMMENDATION: Routine annual follow-up in 1 Year A letter with findings and recommendations will be mailed to the patient. Reading Location: [id number]
--- OUTSIDE RECORDS SUMMARY | 2025-02-11 07:24 | XMS RPT_ITS | CCD ---
Author Organization [facility] Providers Care Cloth Washer Operator Name Role Phone KELSEY SIM AMY Unavailable Unavailable Jolliff, Dr. Amy S Primary Care Provider Dr. Low Castelan Attending Provider Dr. Low Castelan Referring Provider Dr. Kelsey Sim Referring Provider Karen Garcia Attending Provider Unavailable Dr. Kelsey Sim Primary Care Provider Dr. Low Castelan Attending Provider Dr. Low Castelan Referring Provider Dr. Kelsey Sim Primary Care Provider Dr. Kelsey Sim Referring Provider Dr. Low Castelan Attending Provider Dr. Kelsey Sim Primary Care Provider Dr. Kelsey Sim Referring Provider Karen Garcia Attending Provider Unavailable Dr. Kelsey Sim MD Primary Care Provider Dr. Low Castelan MD Attending Provider Isabel Reyes MD Primary Care Provider Donnellorrow AIRCRAFT STRESS ANALYSTOswaldo Case Attending Provider Donnellorrow AIRCRAFT STRESS ANALYST-COswaldo Referring Provider Low Castelan Attending Unavailable Kelsey Sim Primary Care Unavailable Low Castelan Attending Unavailable Kelsey Sim Primary Care Unavailable Jolliff, Kelsey S Referring Unavailable Jolliff, Kelsey S Primary Care Unavailable Jolliff, Kelsey S Referring Unavailable Owen AIRCRAFT STRESS ANALYST, Luis Christiansen Attending Unavailable Jolliff, Kelsey S Primary Care Unavailable Flip, Low Attending Unavailable Flip, Low Attending Unavailable Jolliff, Kelsey S Primary Care Unavailable Amy, Chalon Primary Care Unavailable McMorrow AIRCRAFT STRESS ANALYST, Oswaldo Attending Unavailable McMorrow AIRCRAFT STRESS ANALYST, Oswaldo Referring Unavailable Amy, Chalon Primary Care Unavailable McMorrow AIRCRAFT STRESS ANALYST, Oswaldo Attending Unavailable McMorrow AIRCRAFT STRESS ANALYST, Oswaldo Referring Unavailable Jac AIRCRAFT STRESS ANALYST, Hortencia Attending Unavailable Nathan AIRCRAFT STRESS ANALYST, Hortencia Referring Unavailable Jolliff, Kelsey S Primary Care Unavailable Nathan AIRCRAFT STRESS ANALYST, Hortencia Attending Unavailable Jolliff, Kelsey S Primary Care Unavailable Jolliff, Kelsey S Primary Care Unavailable Flip, Low Attending Unavailable Jolliff, Kelsey S Primary Care Unavailable FlipEbenLow Attending Unavailable Flip, Herndon Attending Unavailable Amy, Chalon Primary Care Unavailable Allergies Allergy Classification Reported Allergen(s) Allergy Type Date of Onset Reaction(s) Facility (6 sources) Nitrofurantoin Drug Allergy 1 Other [facility] (1 source) Nitrofurantoin Drug Allergy 4 [facility] Repository Medications Current Medications Medication Drug Class(es) Dates Sig (Normalized) Sig (Original) alendronic acid 70 mg oral tablet (6 sources) Bisphosphonate Start: 07-09-2020 take 1 tablet by mouth every week Alendronate 70 mg tablet Active 70 mg PO EVERY WEEK July 09, 2020 1:00am aspirin 81 mg chewable tablet (6 sources) Platelet Aggregation Inhibitor, Nonsteroidal Anti-inflammatory Drug Start: 01-20-2018 take 1 tablet by mouth once daily Aspirin 81 MG tablet,chewable Active 81 mg PO DAILY January 20, 2018 12:00am [facility] atorvastatin 20 mg oral tablet (6 sources) HMG-CoA Reductase Inhibitor Start: 01-20-2018 take 1 tablet by mouth at bedtime Atorvastatin 20 MG tablet Active 20 mg PO AT BEDTIME January 20, 2018 12:00am cholesterol Ca Carb-Ca Gluc-Mg Ox-Mg Gluco (Calcium Magnesium) 500 mg calcium -250 mg tablet (4 sources) Start: 01-31-2018 take 2 tablets by mouth once daily Ca Carb-Ca Gluc-Mg Ox-Mg Gluco (Calcium Magnesium) 500 mg calcium -250 mg tablet Active 2 TABLET PO DAILY January 31, 2018 9:44am Start: 01-31-2018 take 2 tablets by cox monett once daily Ca Carb-Ca Gluc-Mg Ox-Mg Gluco (Calcium Magnesium) 500 mg calcium -250 mg tablet Active 2 TABLET PO DAILY January 31, 2018 12:00am Calcium Carb,Gluc-Mag Gluc,O x (Calcium Magnesium) 500 mg calcium- 250 mg tablet (2 sources) Start: 06-27-2024 Calcium Carb,G kylie-Mag Gluc,Ox (Calcium Magnesium) 500 mg calcium- 250 mg tablet Active 1 {tbl} PO DAILY 0 June 27, 2024 10:22am reflux Start: 06-27-2024 Calcium Carb,G kylie-Mag Gluc,Ox (Calcium Magnesium) 500 mg calcium- 250 mg tablet Active 1 {tbl} PO DAILY June 27, 2024 10:22am cetirizine hydrochloride 10 mg oral capsule (6 sources) Histamine-1 Receptor Antagonist Start: 01-20-2018 take 1 capsule by mouth once daily Cetirizine 10 MG capsule Active 10 mg PO DAILY January 20, 2018 12:00am allergy cholecalciferol 0.025 mg oral capsule (6 sources) Vitamin D Start: 01-20-2018 take 1 capsule by mouth once daily Cholecalciferol (Vitamin D3) 1,000 UNIT capsule Active 1000 U PO DAILY January 20, 2018 12:00am vitamin Fish,Bora,Flax Oils-Om3,6,9no1 (Rice 3-6-9 Complex) 400-400-400 mg capsule (2 sources) Start: 06-27-2024 take 3-6 capsules by mouth once daily Fish,Bora,Flax Oils-Om3,6,9no1 (Rice 3-6-9 Complex) 400-400-400 mg capsule Active 1 NMA PO daily June 27, 2024 1:00am hydroCHLOROthiazide 12.5 mg oral tablet (18 sources) Thiazide Diuretic Start: 07-01-2021 take 1 tablet by mouth once daily Hydrochlorothiazide 12.5 mg tablet Active 12.5 mg PO DAILY July 01, 2021 1:00am Start: 01-31-2018 End: 07-09-2019 take 1 tablet by mouth once daily Hydrochlorothiazide 25 mg tablet Discontinued 25 mg PO DAILY January 31, 2018 9:42am July 09, 2019 10:10am diuretic Start: 01-20-2018 End: 01-31-2018 Hydrochlorothiazide 25 MG ta blet Discontinued 12.5 mg PO DAILY January 20, 2018 12:00am January 31, 2018 9:44am Start: 01-20-2018 End: 01-31-2018 take 12.5 mg by mouth once daily Hydrochlorothiazide Discontinued 12.5 MG PO DAILY January 20, 2018 12:00am January 31, 2018 9:44am latanoprost 0.05 mg/ml ophthalmic solution (8 sources) Prostaglandin Analog Start: 06-27-[address] 0.005 % drops Active 1 NMA OPHTHALMIC EVERY EVENING June 27, 2024 10:22am Start: 07-09-2019 End: 06-27-2024 Latanoprost 0.005 % drops Di scontinued OPHTHALMIC July 09, 2019 1:00am June 27, 2024 10:25am Start: 07-09-2019 Latanoprost Ac tive OPHTHALMIC July 09, 2019 1:00am levothyroxine sodium 0.075 mg oral tablet (8 sources) l-Thyroxine Start: 01-20-2018 End: 06-27-2024 Levothyroxine 75 mcg tablet Active 75 ug PO SUMOTUWETHFR June 27, 2024 10:23am thyroid LORazepam 0.5 mg oral tablet (6 sources) Benzodiazepine Start: 01-20-2018 take 1 tablet by mouth once daily as needed for anxiety Lorazepam 0.5 MG tablet Active 0.5 mg PO DAILY NEEDED as needed for Anxiety January 20, 2018 12:00am losartan potassium 50 mg oral tablet (6 sources) Angiotensin 2 Receptor Jeannie Start: 07-01-2021 take 1 tablet by mouth once daily Losartan 50 mg tablet Active 50 mg PO DAILY July 01, 2021 1:00am lutein 40 mg oral capsule (6 sources) Start: 01-20-2018 take 1 capsule by mouth once daily Lutein 40 MG capsule Active 40 mg PO DAILY January 20, 2018 12:00am supplement melatonin 10 mg oral tablet (2 sources) Start: 06-27-2024 take 1 tablet by mouth at bedtime Melatonin 10 mg tablet Active 10 mg PO BEDTIME June 27, 2024 1:00am Multivitamin 1 EACH tablet (2 sources) Start: 01-20-2018 Multivitamin 1 EACH tablet Active 1 NMA PO DAILY January 20, 2018 12:00am supplement Start: 01-20-2018 Multivitamin 1 EACH tablet Active 1 NMA PO DAILY January 20, 2018 12:00am Multivitamin preparation (4 sources) Start: 01-20-2018 Multivitamin A ctive 1 EACH PO DAILY January 20, 2018 4:08am Start: 01-20-2018 Multivitamin A ctive 1 EACH PO DAILY January 20, 2018 12:00am Rice 3-6-9 Complex Softgel (6 sources) Start: 01-20-2018 take 1 tablet by mouth once daily Rice 3-6-9 Complex Softgel Active 1 TABLET PO DAILY January 20, 2018 4:09am Start: 01-20-2018 End: 06-27-2024 Rice 3-6-9 Complex Softgel Discontinued 1 {tbl} PO DAILY January 20, 2018 12:00am June 27, 2024 10:25am supplement Start: 01-20-2018 End: 06-27-2024 Rice 3-6-9 Complex Softgel Discontinued 1 {tbl} PO DAILY January 20, 2018 12:00am June 27, 2024 10:25am Start: 01-20-2018 take 1 tablet by allyson th once daily Rice 3-6-9 Complex Softgel Active 1 TABLET PO DAILY January 20, 2018 12:00am omeprazole 20 mg delayed release oral capsule (8 sources) Proton Pump Inhibitor Start: 06-28-2023 take 1 capsule by mouth once daily Omeprazole 20 mg capsule,delayed release(DR/EC) Active 20 mg PO DAILY June 28, 2023 12:08pm reflux Start: 01-20-2018 End: 06-28-2023 take 1 capsule by mouth every other day Omeprazole 20 MG capsule Discontinued 20 mg PO EVERY OTHER DAY January 20, 2018 12:00am June 28, 2023 12:08pm reflux ubidecarenone 100 mg oral capsule (6 sources) Start: 01-20-2018 take 10 capsules by mouth once daily Coenzyme Q10 100 MG capsule Active 200 mg PO DAILY January 20, 2018 12:00am supplement vitamin b12 1 mg oral capsule (10 sources) Vitamin B12 Start: 06-28-2023 End: 06-27-2024 take 1 capsule by mouth every other day Cyanocobalamin (Vitamin B-12) 1,000 mcg capsule Active 1000 ug PO every other day June 27, 2024 10:22am vitamin Start: 01-20-2018 End: 06-28-2023 take 1 capsule by mouth once daily Cyanocobalamin (Vitamin B-12) 1,000 MCG capsule Discontinued 1000 ug PO DAILY January 20, 2018 12:00am June 28, 2023 12:08pm vitamin Completed/Discontinued Medications Medication Drug Class(es) Dates Sig (Normalized) Sig (Original) [id number] 200 actuat albuterol 0.09 mg/actuat metered dose inhaler (6 sources) beta2-Adrenergic Agonist Start: 01-20-2018 End: 07-01-2021 Albuterol Sulfate 1 PUFF inhaler Discontinued 2 NMA INHALATION EVERY 6 HOURS NEEDED as needed for Sob Or Anxiety January 20, 2018 12:00am July 01, 2021 12:18pm Start: 01-20-2018 End: 07-01-2021 take 1 puff(s) by inhalation every six hours as needed Albuterol Sulfate Discontinued 2 PUFF INHALATION EVERY 6 HOURS NEEDED January 20, 2018 12:00am July 01, 2021 12:18pm Calcium Carb,Gluc-Mag Gluc,O x (Calcium Magnesium) 500 mg calcium -250 mg tablet (2 sources) Start: 01-31-2018 End: 06-27-2024 Calcium Carb,Gluc-Mag Gluc,O x (Calcium Magnesium) 500 mg calcium -250 mg tablet Discontinued 2 {tbl} PO DAILY 0 January 31, 2018 12:00am June 27, 2024 10:25am reflux Start: 01-31-2018 End: 06-27-2024 Calcium Carb,Gluc-Mag Gluc,O x (Calcium Magnesium) 500 mg calcium -250 mg tablet Discontinued 2 {tbl} PO DAILY January 31, 2018 12:00am June 27, 2024 10:25am diphenhydrAMINE hydrochloride 25 mg oral capsule (6 sources) Histamine-1 Receptor Antagonist Start: 01-20-2018 End: 05-08-2018 take 1 capsule by mouth at bedtime as needed for sleep Diphenhydramine Hcl 25 MG capsule Discontinued 25 mg PO AT BEDTIME NEEDED as needed for Sleep January 20, 2018 12:00am May 08, 2018 2:08pm hydroCHLOROthiazide 12.5 mg / losartan potassium 50 mg oral tablet (6 sources) Thiazide Diuretic, Angiotensin 2 Receptor Jeannie Start: 07-09-2019 End: 07-01-2021 Losartan-Hydrochlor othiazide 50-12.5 mg tablet Discontinued 1 {tbl} PO DAILY July 09, 2019 1:00am July 01, 2021 12:18pm Start: 07-09-2019 End: 07-01-2021 take 1 tablet by mouth once daily Losartan-Hydrochlorothiazide Discontinue d 1 TABLET PO DAILY July 09, 2019 1:00am July 01, 2021 12:18pm naproxen sodium 220 mg oral capsule (6 sources) Nonsteroidal Anti-inflammatory Drug Start: 01-20-2018 End: 05-08-2018 take 1 capsule by mouth once daily as needed for pain Naproxen Sodium 220 MG capsule Discontinued 220 mg PO DAILY as needed for Pain January 20, 2018 12:00am May 08, 2018 2:08pm Problems Problem Classification Problem Date Documented Date Episodic/Chronic Cardiac dysrhythmias (20 sources) AV junctional (tamy) tachycardia; Translations: [Supraventricular tachycardia] Onset: 07-03-2024 Chronic Cardiac dysrhythmias (6 sources) Palpitations - rapid; Translations: [Palpitations] 07-09-2019 Episodic Conduction disorders (20 sources) Cardiac pacemaker in situ; Translations: [Presence of cardiac pacemaker] Onset: 02-06-2018 Chronic Disorders of lipid metabolism (6 sources) Hyperlipidemia; Translations: [Hyperlipidemia, unspecified] 2018 Chronic Essential hypertension (6 sources) Essential hypertension; Translations: [Essential (primary) hypertension] 07-09-2019 Chronic Menopausal disorders (1 source) Unspecified menopausal and perimenopausal disorder; Translations: [Unspecified menopausal and perimenopausal disorder] Onset: 02-07-2025 Chronic Nonspecific chest pain (6 sources) Chest pain; Translations: [Chest pain, unspecified] 07-09-2019 Episodic Other lower respiratory disease (6 sources) Dyspnea; Translations: [Dyspnea, unspecified] 07-09-2019 Episodic Other screening for suspected conditions (not mental disorders or infectious disease) (2 sources) Encounter for screening mammogram for malignant neoplasm of breast; Translations: [Encounter for screening for diabetes mellitus] Onset: 12-27-2024 Episodic Results Test Name Value Interpretation Reference Range Facility Calculated very low density lipoprotein (VLDL) cholesterol measurementOrdered By: Oswaldo Coughlin on 12-23-2024 Calculated very low density lipoprotein (VLDL) cholesterol measurement 28 mg/dL 5-40 [facility] Hemoglobin A1con 12-23-2024 HbA1c (Bld) [Mass fraction] 6.1 % High <=5.6 [facility] Comment on above: Order Comment: Order Date: 12/23/24 Order Info: [id number] - A1C Result Comment: Norm al < 5.7 % Prediabetic 5.7 - 6.4 % Diabetic >or= 6.5 % Please note range changes. Performed By: #### L 501.9985 #### [facility] [address] [place], [address] Hemoglobin A1c percentageOrd ered By: Oswaldo Donnelllarry on 12-23-2024 HbA1c (Bld) [Mass fraction] 6.1 % High <5.7 [facility] Comment on above: Normal < 5.7 % Predi abetic 5.7 - 6.4 % Diabetic >or= 6.5 % Please note range changes. LDL calc ser/plasOrdered By: Oswaldo Donnelllarry on 12-23-2024 Cholesterol in LDL [Mass/Vol] 64 mg/dL [facility] Comment on above: Vtwwsvevbp=335-074 m g/dL & Higher Iiqi=313 mg/dL or greater Lipid Profileon 12-23-2024 CHOL:HDL 2.59 Normal [facility] Comment on above: Order Comment: Order Date: 12/23/24 Order Info: [id number] - LIPID Order Info: [id number] - TSH Performed By: #### L 500.4100 #### [facility] [address] [place], [place], [id number] Cholesterol [Mass/Vol] 150 mg/dL Normal <=200 [facility] Comment on above: Order Comment: Order Date: 12/23/24 Order Info: [id number] - LIPID Order Info: [id number] - TSH Result Comment: Chol esterol level, Desirable <200 mg/dL Borderline high cholesterol 200-239 mg/dL High cholesterol >=240 mg/dL Recommendations of the NCEP Adult Treatment Panel for the following risk-cutoff thresholds for the [place] population. Performed By: #### L 500.3236 #### [facility] [address] [place], [address] Cholesterol in HDL [Mass/Vol] 58 mg/dL Normal [facility] Comment on above: Order Comment: Order Date: 12/23/24 Order Info: [id number] - LIPID Order Info: [id number] - TSH Result Comment: Em onal Cholesterol Education Program (NCEP) guidelines: <40 mg/dL: Low HDL-cholesterol (major risk factor for CHD) >= 60 mg/dL: High HDL-cholesterol (negative risk factor for CHD) HDL-cholesterol is affected by a number of factors, e.g. smoking, exercise, hormones, sex and age. Performed By: #### L 500.4100 #### [facility] [address] [place], [address] Cholesterol in LDL [Mass/Vol] 64 mg/dL Normal [facility] Comment on above: Order Comment: Order Date: 12/23/24 Order Info: [id number] - LIPID Order Info: [id number] - TSH Result Comment: Bord jqowlh=813-708 mg/dL Higher Lqqj=196 mg/dL or greater Performed By: #### L 500.4100 #### [facility] [address] [place], [address] Cholesterol in VLDL [Mass/Vol] 28 mg/dL Normal 5-40 [facility] Comment on above: Order Comment: Order Date: 12/23/24 Order Info: [id number] - LIPID Order Info: [id number] - TSH Performed By: #### L 500.4100 #### [facility] [address] [place], [address] Triglyceride [Mass/Vol] 142 mg/dL Normal [facility] Comment on above: Order Comment: Order Date: 12/23/24 Order Info: [id number] - LIPID Order Info: 3 - TSH Result Comment: The drugs N-Acetylcysteine and Metamizole may falsely depress this assay. Normal range: <150 mg/dL Borderline High: 150-199 mg/dL High: 200-499 mg/dL Very High: >500 mg/dL Performed By: #### L 500.4100 #### [facility] [address] [place], [place], [id number] Screening total cholesterol/ high density lipoprotein (HDL) cholesterol ratioOrdered By: Oswaldo Coughlin on 12-23-2024 Cholesterol.total/Fifi sterol in HDL [Mass ratio] 2.59 {ratio} [facility] Serum or plasma cholesterol in HDL measurement (mass/volume)Ordered By: Oswaldo Coughlin on 12-23-2024 Cholesterol in HDL [Mass/Vol] 58 mg/dL >40 [facility] Comment on above: National Cholesterol Education Program (NCEP) guidelines:<40 mg/dL: Low HDL-cholesterol (major risk factor for CHD)>= 60 mg/dL: High HDL-cholesterol (negative risk factor for CHD)HDL-cholesterol is affected by a number of factors, e.g. smoking, exercise, hormones, sex and age. Serum or plasma cholesterol measurement (mass/volume)Ordered By: Oswaldo Coughlin on 12-23-2024 Cholesterol [Mass/Vol] 150 mg/dL <201 [facility] Comment on above: Cholesterol level, D esirable <200 mg/dLBorderline high cholesterol 200-239 mg/dLHigh cholesterol >=240 mg/dLRecommendations of the NCEP Adult Treatment Panel for the following risk-cutoff thresholds for the [place] population. TSH DL <= 0.005 mIU/L QnOrde red By: Oswaldo Coughlin on 12-23-2024 TSH Qn 0.919 uIU/mL 0.300-4.200 [facility] Thyroid Stim Hormone (TSH)on 12-23-2024 TSH 0.919 uIU/mL Normal 0.300-4.200 [facility] Comment on above: Order Comment: Order Date: 12/23/24 Order Info: [id number] - LIPID Order Info: [id number] - TSH Performed By: #### L 501.9520 #### [facility] [address] [place], [place], [id number] Triglycerides measurementOrd ered By: Oswaldo Coughlin on 12-23-2024 Triglyceride [Mass/Vol] 142 mg/dL <199 [facility] Comment on above: The drugs N-Acetylcy steine and Metamizole may falsely depress this assay. Normal range: <150 mg/dLBorderline High: 150-199 mg/dLHigh: 200-499 mg/dLVery High: >500 mg/dL Cardiology Visit Reporton Cardiology Visit Report [facility] [address] [place] [address] OFFICE VISIT Date of Service: 06/27/24 MR#: [id number] Acct: [id number] Name: AUREA LANG Rep #: [id number] : 1955 Provider: KEVAN moraes Age/Sex: 69/F Location: [place] Status: Signed HPI HPI History of Present Illness Details: AUREA LANG, is a 69 F who presents to the office today for a cardiovascular follow-up visit. She has a history of hypertension, 2-1 heart block with PPM placement in 2018. She has a history of OLGA, and minimal coronary disease following cardiac catheterization in January 2018 and her echocardiogram from the same year demonstrated an ejection fraction of 70%. She denies chest, arm, jaw, or neck discomfort. She denies palpitations. She states right ankle edema and bilateral hand edema. She denies claudication. She denies shortness of breath with activity, shortness of breath at rest, orthopnea, or PND. She denies chronic cough. She denies significant, sudden weight gain. She denies lightheadedness, dizziness, near-syncope, or syncope. She denies blood in urine, blood in stool, or epistaxis. He denies fever with chills. She denies myalgia. She denies fatigue. Her exercise level has remained stable. Intake Vital Signs 06/28/23 10:43 06/27/24 09:19 Height 5 ft 5 ft Weight: 172 lb BMI 33.5 BP 152/82 H Blood Pressure Location Lt brachial Position Sitting Respiration 16 Pulse 61 Pulse Source NIBP Intake Visit Reasons: 1 Y FU/MAGEN @ [address] [employer] Required: No Is patient in pain?: No Allergies nitrofurantoin (From Macrodantin) Adverse Reaction (Verified 06/27/24 09:21) Other Medications ???Medication ???Instructions ???Recorded ???Confirmed ???Type aspirin 81 mg chewable tablet 81 mg PO DAILY heart health 01/20/18 06/27/24 History atorvastatin 20 mg tablet 20 mg PO QHS cholesterol 01/20/18 06/27/24 History cetirizine 10 mg capsule 10 mg PO DAILY allergy 01/20/18 06/27/24 History cholecalciferol (vitamin D3) 25 1,000 unit PO DAILY vitamin 01/20/18 06/27/24 History mcg (1,000 unit) capsule coenzyme Q10 100 mg capsule 200 mg PO DAILY supplement 01/20/18 06/27/24 History lorazepam 0.5 mg tablet 0.5 mg PO DAILY PRN PRN Anxiety 01/20/18 06/27/24 History lutein 40 mg capsule 40 mg PO DAILY supplement 01/20/18 06/27/24 History multivitamin 1 ea PO DAILY supplement 01/20/18 06/27/24 History alendronate 70 mg tablet 70 mg PO QWEEK 07/09/20 06/27/24 History hydrochlorothiazide 12.5 mg tablet 12.5 mg PO DAILY 07/01/21 06/27/24 History losartan 50 mg tablet 50 mg PO DAILY 07/01/21 06/27/24 History omeprazole 20 mg capsule,delayed 20 mg PO DAILY reflux 06/28/23 06/27/24 History release calcium 500 mg 1 tab PO DAILY reflux 06/27/24 06/27/24 History (carb,gluconate)-mag nesium 250 mg (gluc,oxide) tablet (Calcium Magnesium) cyanocobalamin (vitamin B-12) 1,000 mcg PO Q OTHER DAY vitamin 06/27/24 06/27/24 History 1,000 mcg capsule fish, borage, flaxseed oils-omega 1 cap PO QDAY 06/27/24 06/27/24 History 3,6,9 cb #1 400 mg-400 mg-400 mg cap (Rice 3-6-9 Complex) latanoprost 0.005 % eye drops 1 drp ophthalmic (eye) QPM 06/27/24 06/27/24 History levothyroxine 75 mcg tablet 75 mcg PO SUMOTUWETHFR thyroid 06/27/24 06/27/24 History melatonin 10 mg tablet 10 mg PO HS 06/27/24 06/27/24 History Ejection fraction %: 55 Have you fallen in the past year?: No PFSH Medical History Essential (primary) hypertension Presence of cardiac pacemaker (02/06/18) Sick sinus syndrome Glaucoma Blindness of left eye Macular hole Hypothyroidism Junctional tachycardia Obesity Obstructive sleep apnea Hyperlipidemia Second degree AV block Surgical History S/P laser cataract surgery (05/06/24) H/O bilateral cataract extraction History of colonoscopy (03/2021) History of left heart catheterization (02/01/18) History of eye surgery History of tonsillectomy History of tubal ligation ( 1989) History of partial thyroidectomy ( 1990) Family History Father CAD (coronary artery disease) CABG age 68 Sister Cirrhosis Social History (Updated 06/27/24 @ 09:27 by Crystal Xavier) Smoking Status: Never smoker alcohol intake: current alcohol intake frequency: a few times a month Alcohol type: wine substance use type: does not use caffeine: Yes Type: coffee Number of servings: 4 ROS Const Const: Negative for fatigue or weakness Eyes Eyes: Negative for change in vision ENT ENT: Negative for dizziness or balance problems Cardio Chest Pain: No Palpitations: No Edema: Bilateral (Bilateral hands get swollen, right ankle swelling) Muscle aches wit (more content not included)... Normal [facility] Pacemaker Checkon 06-27-2024 Pacemaker Check [facility] [address] [place] [address] Pacemaker Check Date of Service: 06/27/24 1047 MR#: [id number] Acct: [id number] Name: AUREA LANG Rep #: [id number] : 1955 From: Karen Garcia Age/Sex: 69/F Location: [place] Status: Signed Billing Codes PM Device Codes: 09935 PM Dev Prog Eval, Dual Assessment and Plan Assessment and Plan (1) Presence of cardiac pacemaker: Status: Chronic (2) Sick sinus syndrome: Status: Chronic (3) Second degree AV block: Status: Chronic (4) Junctional tachycardia: Status: Chronic 06/27/24 1047 Date Karen Garcia Signature: Date (if applicable) CC: Normal [facility] Echo Completeon 03-01-2024 Echo Complete [facility] [address] [place] [address] Echo Complete 03/01/24 0955 MR#: [id number] Acct: [id number] Name: AUREA LANG Rep #: [id number] : 1955 69 From: Low Castelan MD Attending Dr: Hortencia Nathan NP-C Status: [facility] Ordering Dr: Hortencia Nathan NP AIRCRAFT STRESS ANALYST-C Date: 03/01/24 Location: [facility] Sex: F C Admitted: Reason For Study: AV BLOCK 2nd degree Procedure This was a 2D Doppler, Color Flow transthoracic echocardiogram. Exam performed in department. Left Ventricle Normal LV size. Left ventricular systolic function is normal. The left ventricular ejection fraction is 55 %. Stage 1 diastolic dysfunction. No regional wall motion abnormalities noted. Right Ventricle Normal RV size. ICD or pacer leads identified within the right ventricle. Normal systolic function. Tricuspid Valve Normal tricuspid valve. Mild tricuspid valve insufficiency. Pulmonary artery systolic pressure is 32 mmHg. Aortic Valve Trisinus/trileaflet aortic valve. Pulmonic Valve Normal pulmonic valve. Great Vessels Normal aortic root. The pulmonary artery is normal size. Normal inferior vena cava. Pericardium/Pleural No pericardial effusion. MMode/2D Measurements Calculations LVIDd: 4.2 cm IVSd: 1.4 cm Ao root diam: 2.7 cm LVIDs: 2.7 cm LVPWd: 1.0 cm RVDd: 2.7 cm FS: 35.8 % _ LAV(MOD-bp): 45.4 ml LVAd ap4: 18.5 cm2 LVAd ap2: 19.6 cm2 LAV(MOD-bp) Indexed: 25.9 ml/m2 LVLd ap4: 6.0 cm LVLd ap2: 6.1 cm LAV(MOD-sp2): 44.9 ml EDV(MOD-sp4): 49.4 ml EDV(MOD-sp2): 52.6 ml LAV(MOD-sp4): 44.9 ml EDV(sp4-el): 48.7 ml EDV(sp2-el): 53.3 ml LVAs ap4: 9.7 cm2 LVAs ap2: 10.6 cm2 LVLs ap4: 4.7 cm LVLs ap2: 5.3 cm ESV(MOD-sp4): 18.0 ml ESV(MOD-sp2): 18.1 ml ESV(sp4-el): 16.8 ml ESV(sp2-el): 18.0 ml EF(MOD-sp4): 63.5 % EF(MOD-sp2): 65.6 % EF(sp4-el): 65.4 % _ SV(MOD-sp4): 31.4 ml SV(MOD-sp2): 34.5 ml SV(sp4-el): 31.8 ml _ LA A4 area: 16.3 cm2 LA dimension(2D): 3.5 cm RA A4 area: 10.4 cm2 _ TAPSE: 1.8 cm Time Measurements MV dec time: 0.10 sec Doppler Measurements Calculations MV E max nathanael: 79.5 cm/sec Lat Peak E' Nathanael: 2.4 cm/sec Med Peak E' Nathanael: 6.3 cm/sec MV A max nathanael: 123.9 cm/sec E/E' lat: 33.6 E/E' med: 12.6 MV E/A: 0.64 _ MV V2 max: 130.3 cm/sec Ao V2 max: 137.3 cm/sec LV V1 max: 98.1 cm/sec MV max P.8 mmHg Ao max P.6 mmHg LV V1 max P.9 mmHg MV V2 mean: 79.9 cm/sec Ao V2 mean: 97.8 cm/sec LV V1 mean P.3 mmHg MV mean P.8 mmHg Ao mean P.3 mmHg LV V1 mean: 71.0 cm/sec MV V2 VTI: 25.8 cm Ao V2 VTI: 27.2 cm LV V1 VTI: 20.5 cm AV (velocity ratio): 0.76 _ PA V2 max: 124.4 cm/sec TR max nathanael: 268.4 cm/sec PA V2 mean: 88.9 cm/sec TR max P.8 mmHg ECHO/Echo Complete Interpretation Summary Normal LV size. Left ventricular systolic function is normal. The left ventricular ejection fraction is 55 %. Stage 1 diastolic dysfunction. Ordering Physician: Hortencia Nathan Referring Physician: Kelsey Sim Performed By: Sloane Sahni, DAVION, RVT 03/01/24 1314 Date Low Castelan MD CC: [employer] ANALYST-C Hortencia Nathan; Dr. Kelsey Sim MD Date Dictated: 03/01/24954 Date Transcribed: 03/01/241313 Compensation Consultant: Signed Normal [facility] Absolute lymphocyte countOrd ered By: Dr. Sim on 11-29-2022 Lymphocytes Auto (Unsp spec) [#/Vol] 1.89 10*3/uL 0.83-4.51 [facility] Basophil percentageOrdered B y: Dr. Sim on 11-29-2022 Basophils/100 WBC (Bld) 0.7 % 0-1 [facility] Bilirubin [Mass/Vol] 0.70 mg/dL 0.20-1.00 [facility] Comment on above: For patients on eltr ombopag therapy, use of Dimension [place] [employer] TBIL is not recommended. Chloride [Moles/Vol] 104 mmol/L 98-107 [facility] Cholesterol [Mass/Vol] 170 mg/dL <200 [facility] Comment on above: <200 mg/dL Desirable 200-240 mg/dL Borderline >240 mg/dL High Risk Eosinophils/100 WBC (Bld) 4.1 % 0-5 [facility] Glucose [Mass/Vol] 93 mg/dL 74-106 [facility] Neutrophils (Bld) [#/Vol] 3.4 10*3/uL 2.0-7.7 [facility] Neutrophils/100 WBC (Bld) 56.1 % 47-70 [facility] Potassium [Moles/Vol] 4.4 mmol/L 3.5-5.1 [facility] Protein [Mass/Vol] 7.6 g/dL 6.4-8.2 [facility] Sodium [Moles/Vol] 140 mmol/L 136-145 [facility] Triglyceride [Mass/Vol] 118 mg/dL <199 [facility] Comment on above: The drugs N-Acetylcy steine and Metamizole may falsely depress this assay.Serum Triglycerides Reference Interval Normal <150 mg/dL Borderline high 150 - 199 mg/dL High 200 - 499 mg/dL Very High > or = 500 mg/dL WBC (Bld) [#/Vol] 6.1 10*3/uL 4.4-11.0 [facility] Blood erythrocytes count (nu mber/volume)Ordered By: Dr. Sim on 11-29-2022 RBC (Bld) [#/Vol] 4.37 10*6/uL 4.2-5.4 [facility] Blood hemoglobin measurement (mass/volume)Ordered By: Dr. Sim on 11-29-2022 Hemoglobin (Bld) [Mass/Vol] 13.6 g/dL 12.0-15.0 [facility] Blood lymphocytes/100 leukoc ytesOrdered By: Dr. Sim on 11-29-2022 Lymphocytes/100 WBC (Bld) 30.9 % 19-41 [facility] Blood monocytes/100 leukocyt esOrdered By: Dr. Sim on 11-29-2022 Monocytes/100 WBC (Bld) 8.0 % 0-10 [facility] Blood platelet mean volumeOr dered By: Dr. Sim on 11-29-2022 Platelet mean volume (Bld) [Entitic vol] 10.3 fL 6.2-12.0 [facility] Determination of erythrocyte mean corpuscular volume (MCV)Ordered By: Dr. Sim on 11-29-2022 MCV (RBC) [Entitic vol] 93.1 fL 81-99 [facility] Hematocrit Auto (Bld) [Volum e fraction]Ordered By: Dr. Sim on 11-29-2022 Hematocrit (Bld) [Volume fraction] 40.7 % 37-47 [facility] Laboratory - Chemistry and C hemistry - challengeOrdered By: Dr. Sim on 11-29-2022 ALP [Catalytic activity/Vol] 89 U/L 45-117 [facility] ALT [Catalytic activity/Vol] 46 U/L 13-56 [facility] CO2 [Moles/Vol] 28.0 mmol/L 21.0-32.0 [facility] Globulin (S) [Mass/Vol] 3.6 g/dL 2.2-4.2 [facility] T4 [Mass/Vol] 15.7 ug/dL 4.8-13.9 [facility] Urea nitrogen/Creatinine [Mass ratio] 12.4 mg/mg 10-20 [facility] Laboratory - Hematology and Cell countsOrdered By: Dr. Sim on 11-29-2022 Erythrocyte distribution width (RBC) [Entitic vol] 43.0 fL 35.1-43.9 [facility] Erythrocyte distribution width (RBC) [Ratio] 12.6 % 11.6-14.6 [facility] Immature granulocytes/100 WBC (Bld) 0.200 % 0.0-0.9 [facility] Comment on above: IG% - Immature Granu locytes (promyelocytes, myelocytes and metamyelocytes) > 1% indicates that a LEFT SHIFT is Present. MCH (RBC) [Entitic mass] 31.1 pg 27.0-32.0 [facility] Nucleated RBC/100 WBC (Bld) [Ratio] 0 % 0-5 [facility] MCHC Auto (RBC) [Mass/Vol]Or dered By: Dr. Sim on 11-29-2022 MCHC (RBC) [Mass/Vol] 33.4 g/dL 32-36 [facility] No Panel InformationOrdered By: Dr. Sim on 11-29-2022 Estimated GFR (MDRD) Amer 91 mL/min >60 [facility] Comment on above: GFR Calc Estimated GFR (MDRD) Non-Af Amer 75 mL/min >60 [facility] Comment on above: Non- GFR Calc Thyroid Stimulating Hormone (TSH) 0.49 uIU/mL 0.358-3.74 [facility] Urine Microalbumin/Creatinine Ratio TNP [facility] Comment on above: Test not performed Platelets bldOrdered By: Dr. Sim on 11-29-2022 Platelets (Bld) [#/Vol] 259 10*3/uL 150-450 [facility] Serum or plasma albumin lorenza urement (mass/volume)Ordered By: Dr. Sim on 11-29-2022 Albumin [Mass/Vol] 4.0 g/dL 3.2-5.0 [facility] Serum or plasma albumin/glob ulin mass ratioOrdered By: Dr. Sim on 11-29-2022 Albumin/Globulin [Mass ratio] 1.1 {ratio} 0.9-2.4 [facility] Serum or plasma calcium lorenza urement (mass/volume)Ordered By: Dr. Sim on 11-29-2022 Calcium [Mass/Vol] 9.7 mg/dL 8.5-10.1 [facility] Serum or plasma cholesterol in HDL measurement (mass/volume)Ordered By: Dr. Sim on 11-29-2022 Cholesterol in HDL [Mass/Vol] 62 mg/dL >40 [facility] Comment on above: The drugs N-Acetylcy steine and Metamizole may falsely depress this assay. Reference Range HDL <40 mg/dL Low HDL Cholesterol HDL >or= 60 mg/dL High HDL Cholesterol Serum or plasma cholesterol in VLDL measurement (mass/volume)Ordered By: Dr. Sim on 11-29-2022 Cholesterol in VLDL [Mass/Vol] 24 mg/dL 5-40 [facility] Serum or plasma creatinine m easurement (mass/volume)Ordered By: Dr. Sim on 11-29-2022 Creatinine [Mass/Vol] 0.81 mg/dL 0.55-1.02 [facility] Comment on above: The validity of the calculated GFR & GFRAA in patients over 70 years has not been determined. Clinical correlation is essential. Serum or plasma low density lipoprotein (LDL) cholesterol measurement (mass/volume)Ordered By: Dr. Sim on 11-29-2022 Cholesterol in LDL [Mass/Vol] 84 mg/dL 0-130 [facility] Serum or plasma urea nitroge n measurement (mass/volume)Ordered By: Dr. Sim on 11-29-2022 Urea nitrogen [Mass/Vol] 10 mg/dL 7-18 [facility] Thin prep Papanicolaou smear with manual screeningOrdered By: Dr. Sim on 11-29-2022 Thin prep Papanicolaou smear with manual screening 33 U/L 15-37 [facility] Thin prep Papanicolaou smear with manual screening 8 5-15 [facility] Thin prep Papanicolaou smear with manual screening < 5.0 mg/L NO RANGE EST. [facility] Urine creatinine measurement (mass/volume)Ordered By: Dr. Sim on 11-29-2022 Creatinine (U) [Mass/Vol] 17.00 mg/dL NO RANGE EST. [facility] Basophil percentageon 2021 Chloride [Moles/Vol] 105 mmol/L 98-107 [facility] Work Phone: Cholesterol [Mass/Vol] 154 mg/dL <200 [facility] Work Phone: Comment on above: <200 mg/dL Desirable 200-240 mg/dL Borderline >240 mg/dL High Risk Glucose [Mass/Vol] 92 mg/dL 74-106 [facility] Work Phone: Potassium [Moles/Vol] 4.4 mmol/L 3.5-5.1 [facility] Work Phone: Sodium [Moles/Vol] 139 mmol/L 136-145 [facility] Work Phone: Triglyceride [Mass/Vol] 102 mg/dL <199 [facility] Work Phone: Comment on above: The drugs N-Acetylcy steine and Metamizole may falsely depress this assay.Serum Triglycerides Reference Interval Normal <150 mg/dL Borderline high 150 - 199 mg/dL High 200 - 499 mg/dL Very High > or = 500 mg/dL Laboratory - Chemistry and C hemistry - challengeon 11-23-2021 ALT [Catalytic activity/Vol] 42 U/L 13-56 [facility] Work Phone: CO2 [Moles/Vol] 28.0 mmol/L 21.0-32.0 [facility] Work Phone: T4 [Mass/Vol] 14.3 ug/dL 4.8-13.9 [facility] Work Phone: Urea nitrogen/Creatinine [Mass ratio] 10.8 mg/mg 10-20 [facility] Work Phone: No Panel Informationon 11-23 Estimated GFR (MDRD) Amer 88 mL/min >60 [facility] Work Phone: Comment on above: GFR Calc Estimated GFR (MDRD) Non-Af Amer 72 mL/min >60 [facility] Work Phone: Comment on above: Non- GFR Calc Thyroid Stimulating Hormone (TSH) 0.36 uIU/mL 0.358-3.74 [facility] Work Phone: Serum or plasma calcium lorenza urement (mass/volume)on 11-23-2021 Calcium [Mass/Vol] 8.6 mg/dL 8.5-10.1 [facility] Work Phone: Serum or plasma cholesterol in HDL measurement (mass/volume)on 11-23-2021 Cholesterol in HDL [Mass/Vol] 59 mg/dL >40 [facility] Work Phone: Comment on above: The drugs N-Acetylcy steine and Metamizole may falsely depress this assay. Reference Range HDL <40 mg/dL Low HDL Cholesterol HDL >or= 60 mg/dL High HDL Cholesterol Serum or plasma cholesterol in VLDL measurement (mass/volume)on 11-23-2021 Cholesterol in VLDL [Mass/Vol] 20 mg/dL 5-40 [facility] Work Phone: Serum or plasma creatinine m easurement (mass/volume)on 11-23-2021 Creatinine [Mass/Vol] 0.83 mg/dL 0.55-1.02 [facility] Work Phone: Comment on above: The validity of the calculated GFR & GFRAA in patients over 70 years has not been determined. Clinical correlation is essential. Serum or plasma low density lipoprotein (LDL) cholesterol measurement (mass/volume)on 11-23-2021 Cholesterol in LDL [Mass/Vol] 75 mg/dL 0-130 [facility] Work Phone: Serum or plasma urea nitroge n measurement (mass/volume)on 11-23-2021 Urea nitrogen [Mass/Vol] 9 mg/dL 7-18 [facility] Work Phone: Thin prep Papanicolaou smear with manual screeningon 11-23-2021 Thin prep Papanicolaou smear with manual screening 26 U/L 15-37 [facility] Work Phone: Thin prep Papanicolaou smear with manual screening 6 5-15 [facility] Work Phone: .GFRon 07-27-2018 GFR 75 ml/min/1.73sqm Normal [facility] ([place]) Comment on above: Result Comment: GFR Population mean for , Non- Americans Ages 20-29 = 116 mL/min/1.73 sq.m. Ages 30-39 = 107 mL/min/1.73 sq.m. Ages 40-49 = 99 mL/min/1.73 sq.m. Ages 50-59 = 93 mL/min/1.73 sq.m. Ages 60-69 = 85 mL/min/1.73 sq.m. Ages 70+ = 75 mL/min/1.73 sq.m.Chronic Kidney Disease: Less than 60 mL/min/1.73 square metersEnd Stage Renal Disease: Less than 15 mL/min/1.73 square meters Performed By: #### B MP, TSH, GFR, T4 ####[place] [address] GFR Non- 62 ml/min/1.73sqm Normal [facility] ([place]) Comment on above: Result Comment: GFR Population mean for , Non- Americans Ages 20-29 = 116 mL/min/1.73 sq.m. Ages 30-39 = 107 mL/min/1.73 sq.m. Ages 40-49 = 99 mL/min/1.73 sq.m. Ages 50-59 = 93 mL/min/1.73 sq.m. Ages 60-69 = 85 mL/min/1.73 sq.m. Ages 70+ = 75 mL/min/1.73 sq.m.Chronic Kidney Disease: Less than 60 mL/min/1.73 square metersEnd Stage Renal Disease: Less than 15 mL/min/1.73 square meters Performed By: #### B MP, TSH, GFR, T4 ####[place] [address] BMPon 07-27-2018 Calcium mass conc 9.9 mg/dL Normal 8.4-10.2 [facility] ([place]) Comment on above: Performed By: #### B MP, TSH, GFR, T4 ####[place] [address] Chloride molar conc 100 mmol/L Normal 98-107 Count includes the [facility] ([place]) Comment on above: Performed By: #### B MP, TSH, GFR, T4 ####[place] [address] CO2 molar conc 27 mmol/L Normal 23-31 [facility] ([place]) Comment on above: Performed By: #### B MP, TSH, GFR, T4 ####[place] [address] Creatinine mass conc 0.91 mg/dL Normal 0.55-1.02 [facility] ([place]) Comment on above: Performed By: #### B MP, TSH, GFR, T4 ####[place] [address] Electrolyte Balance 11.0 mEq/L Normal Count includes the [facility] ([place]) Comment on above: Performed By: #### B MP, TSH, GFR, T4 ####[address] [address] Glucose mass conc 107 mg/dL Normal 80-115 [facility] ([place]) Comment on above: Performed By: #### B MP, TSH, GFR, T4 ####[address] [address] Potassium molar conc 4.5 mmol/L Normal 3.5-5.1 [facility] ([place]) Comment on above: Performed By: #### B MP, TSH, GFR, T4 ####[address] [address] Sodium molar conc 138 mmol/L Normal 136-145 [facility] ([place]) Comment on above: Performed By: #### B MP, TSH, GFR, T4 ####[address] [address] Urea nitrogen mass conc 13 mg/dL Normal 7-18 [facility] ([place]) Comment on above: Performed By: #### B MP, TSH, GFR, T4 ####[place] [address] Urea nitrogen/Creatinine mass ratio 14 ratio Normal 7-27 [facility] ([place]) Comment on above: Performed By: #### B MP, TSH, GFR, T4 ####[address] [address] T4on 07-27-2018 T4 12.1 mcg/dL High 4.7-11.4 [facility] ([place]) Comment on above: Result Comment: Gen kitchen note as of 02/04/17 new pediatric reference intervals were added for this test. Performed By: #### B MP, TSH, GFR, T4 ####[address] [address] TSHon 07-27-2018 Thyrotropin Qn 0.70 mcIU/mL Normal 0.36-3.74 [facility] ([place]) Comment on above: Performed By: #### B MP, TSH, GFR, T4 ####[address] [address] Vital Signs Date Time Vital Sign Value Performing Clinician Tabatha faulkner 02-07-2023 10:20-0400 Body height 152.[address] Kelsey Sim Work Phone: [facility] Encounters Encounter Date Encounter Type Care Provider Facility Start: 02-11-2025 ambulatory [facility] Facility:[facility] Start: 01-27-2025 End: 01-27-[address] Kelsey Sim MD Work Phone: -[facility] Start: 01-27-2025 End: 01-27-[address] Low Castelan MD -[facility] Work Phone: Start: 12-23-2024 End: 12-23-[address] Kelsey Sim MD Work Phone: [facility] Work Phone: Start: 12-23-2024 End: 12-23-2024 Patient encounter procedure Oswaldo Figueroa [employer]-C [facility] [place] Work Phone: Start: 12-23-2024 End: 12-23-2024 [facility] Facility:[facility] Start: 10-28-2024 End: 10-28-2024 ambulatory Kelsey S Roney Facility:[facility] Start: 10-28-2024 End: 10-28-[address] Low Castelan MD -[facility] Work Phone: Start: 07-29-2024 End: 07-29-2024 ambulatory Kelsey S Roney Facility:[facility] Start: 06-27-2024 End: 06-27-2024 ambulatory Kelsey S Roney Facility:[facility] Start: 04-29-2024 End: 04-29-2024 ambulatory Low Castelan Facility:[facility] Start: 03-01-2024 ambulatory Hortencia Nathan NP Facili ty:[facility] Start: 03-01-2024 ambulatory Low Castelan Facility:[facility] Start: 03-01-2024 End: 03-01-2024 ambulatory Hortencia Nathan NP Facility:[facility] Start: 02-07-2023 End: 02-07-[address] Kelsey Sim Work Phone: [facility] Work Phone: Start: 02-07-2023 End: 02-07-[address] Kelsey Sim Work Phone: [facility]Out[facility] Bone Densitometry Work Phone: Start: 01-20-2023 End: 01-20-[address] Kelsey Sim Work Phone: [facility] Work Phone: Start: 11-29-2022 End: 11-29-[address] Kelsey Sim Work Phone: [facility] Work Phone: Start: 11-29-2022 End: 11-29-[address] Kelsey Sim Work Phone: [facility] Start: 09-28-2022 End: 09-28-[address] Kelsey Sim Work Phone: [facility] Start: 01-27-2022 End: 01-27-[address] Kelsey Sim Work Phone: [facility]Outpatient Breast Imaging Start: 11-23-2021 End: 11-23-[address] Kelsey Sim Work Phone: [facility] Start: 11-10-2021 End: 11-10-[address] Kelsey Sim Work Phone: [facility] Start: 08-06-2021 End: 08-06-[address] Kelsey Sim Work Phone: [facility] Start: 07-27-2018 End: 07-28-2018 Patient encounter procedure KELSEY SIM Facility:[facility] Procedures Date Procedure Procedure Detail Performing Clinician Start: 02-07-2023 Screening mammography Trace Sim Work Phone: Start: 01-27-2022 Screening mammography D david Cole Roney Work Phone: Plan of Treatment Date Care Activity Detail Author Start: 02-07-2023 Dual energy X-ray absorptiometry Dexa Bone Density Study [facility] Payers Date Payer Category Payer Self-pay [id number] 2023 Medicare [id number] 2023 Unknown [id number] 2018 Unknown [id number] 1955 Unknown [id number] 2.16.8 [id number] Unknown [id number] Unknown [id number] 2.16.8 [id number] Unknown [id number] 2.16.8 [id number] Unknown [id number] 2.16.8 [id number] Unknown [id number] 2.16.8 [id number] Unknown [id number] 2.16.8 [id number] Unknown [id number] 2.16.8 [id number] Unknown [id number] 2.16.8 [id number] Unknown [id number] 2.16.8 [id number] Unknown [id number] 2.16.8 [id number] Unknown [id number] 2.16.8 [id number] Unknown [id number] 2.16.8 [id number] Unknown [id number] 2.16.8 [id number] Unknown [id number] 2.16.8 [id number] Social History Date Type Detail Facility Start: 07-01-2021 End: 06-30-2022 Tobacco smoking status NHIS Unknown if ever smoked [facility] Start: 1955 Sex Assigned At Female [facility] Start: 02-01-2018 Non-smoker [facility] Start: 06-27-2024 [facility] Evaluation note 02-06-2018 Note Date & Type Note Facility 02-06-2018 Evaluation note Diagnosis Onset Date Junctional tachycardia chron ic Presence of cardiac pacemaker February 06, 2018 chronic Second degree AV block chron ic Sick sinus syndrome chronic Junctional tachycardia chron ic Presence of cardiac pacemaker February 06, 2018 chronic Second degree AV block chron ic Sick sinus syndrome [facility] Work Phone: Evaluation note 02-06-2018 Note Date & Type Note Facility 02-06-2018 Evaluation note Diagnosis Onset Date Junctional tachycardia chron ic Presence of cardiac pacemaker February 06, 2018 chronic Second degree AV block chron ic Sick sinus syndrome [facility] Work Phone: Evaluation note Note Date & Type Note Facility Evaluation note No assessment information availa ble [facility] Work Phone: Reason for referral (narrative) Note Date & Type Note Facility Reason for referral (narrative) No reason for referral information available [facility] Work Phone: Summary Purpose Family History No Family History Records Found Relationship Condition Age at Onset Recorded Date/T lulu father Coronary artery disease Unknown sister Hepatic cirrhosis Unknown Advance Directives No Advanced Directives Records Found Advance Directive Response Recorded Date/ Time Advance Directives Yes February 06 10:41am Living Will Yes February 06, 2018 10:41am Power of Cyber Incident Handler Yes February 06 10:41am Advance Directive Response Recorded Date/ Time Advance Directives Yes February 06 10:41am Chief Complaint and Reason for Visit Chief Complaint 3 mos remote PPM f/u REMOTE CHECK Reason for Visit Junctional tachycard ia Presence of cardiac pacemaker Second degree AV block Sick sinus syndrome Junctional tachycardia Presence of cardiac pacemaker Second degree AV block Sick sinus syndrome Chief Complaint REMOTE CHECK SCREENING Reason for Visit Junctional tachycard ia Presence of cardiac pacemaker Second degree AV block Sick sinus syndrome Chief Complaint 3 mos remote PPM f/u E ORDER Reason for Visit Junctional tachycard ia Presence of cardiac pacemaker Second degree AV block Sick sinus syndrome Chief Complaint E ORDER 3 mos remote PPM f/u SCREENING Reason for Visit Junctional tachycard ia Presence of cardiac pacemaker Second degree AV block Sick sinus syndrome Chief Complaint Admit Date Pacer Check Remote October 28, 2024 1:41 am EORDERS December 23, 2024 9:19a m Chief Complaint Admit Date Pacer Check Remote October 28, 2024 1:41 am EORDERS December 23, 2024 9:19a m Pacer Check Remote January 27, 2025 1:40a m Additional Source Comments INFORMATION SOURCE (unrecogn ized section and content) DATE CREATED AUTHOR 07/28/2018 [facility] ([place]) DATE CREATED AUTHOR AUTHOR'S ORGANIZ ATION 02/09/2025 [facility] Goals (unrecognized section and content) Goals may be documented in a n alternate sectionGoals may be documented in an alternate sectionGoals may be documented in an alternate sectionGoals may be documented in an alternate sectionGoals may be documented in an alternate sectionGoals may be documented in an alternate section Care Teams (unrecognized sec tion and content) Team Status: Active Member Role Status Dates Dr. Kelsey Sim MD Family Provider Active Dr. Kelsey Sim MD Primary Care Provider Active Team Status: Inactive Member Role Status Dates Dr. Kelsey Sim MD Primary Care Provider, [place] g Provider Active Karen Garcia Active Dr. Low Castelan MD Attending Provider Active Team Status: Inactive Member Role Status Dates Dr. Kelsey Sim MD Primary Care Prov ider, Attending Provider, Referring Provider Active Team Status: Inactive Member Role Status Dates Dr. Kelsey Sim MD Primary Care Provider, Referr[place] g Provider Active Karen Garcia Attending Provider Active Team Status: Active Member Role Status Dates Dr. Kelsey Sim MD Family Provider Active Isabel Reyes MD Primary Care Provider Active Team Status: Inactive Member Role Status Dates Dr. Kelsey Sim MD Primary Care Provider Active Start: October 28, 2024 End: October 28, 2024 Dr. Low Castelan MD Attending Provider Active S tart: October 28, 2024 End: October 28, 2024 Team Status: Inactive Member Role Status Dates Isabel Reyes MD Primary Care Provider Active St art: December 23, 2024 End: December 23, 2024 Oswaldo Coughlin [employer]CRA[employer]ESS ANALYST, AIRCRAFT STRESS ANALYST-C Attending Provider Active Start: December 23, 2024 End: December 23, 2024 Oswaldo Coughlin AIRCRAFT STRESS ANALYST, AIRCRAFT STRESS ANALYST-C Referring Provider Active Start: December 23, 2024 End: December 23, 2024 Team Status: Active Member Role/Relationship Status Frida Reyes MD Primary Care Provider Active Team Status: Inactive Member Role/Relationship Status Dates Dr. Kelsey Sim MD Primary Care Provider Active Start: October 28, 2024 End: October 28, 2024 Dr. Low Castelan MD Attending Provider Active S tart: October 28, 2024 End: October 28, 2024 Team Status: Inactive Member Role/Relationship Status Frida Reyes MD Primary Care Provider Active St art: December 23, 2024 End: December 23, 2024 Oswaldo Coughlin AIRCRAFT STRESS ANALYST, AIRCRAFT STRESS ANALYST-C Attending Provider Active Start: December 23, 2024 End: December 23, 2024 Oswaldo Coughlin AIRCRAFT STRESS ANALYST, AIRCRAFT STRESS ANALYST-C Referring Provider Active Start: December 23, 2024 End: December 23, 2024 Team Status: Inactive Member Role/Relationship Status Frida Reyes MD Primary Care Provider Active St art: January 27, 2025 End: January 27, 2025 Dr. Low Castelan MD Attending Provider Active S tart: January 27, 2025 End: January 27, 2025 FOR RECORDS PERTAINING TO PATIENTS WHO ARE OR HAVE BEEN ENROLLED IN A CHEMICAL DEPENDENCY/SUBSTANCEABUSE PROGRAM, SOME INFORMATION MAY BE OMITTED. This clinical summary was aggregated from multiple sources. Caution should be exercised in using it in the provision of clinical care. This summary normalizes information from multiple sources, and as a consequence, information in this document may materially change the coding, format and clinical context of patient data. In addition, data may be omitted in some cases. CLINICAL DECISIONS SHOULD BE BASED ON THE PRIMARY CLINICAL RECORDS. [facility] [employer] [facility]. provides no warranty or guarantee of the accuracy or completeness of information in this document.
--- NOTE | 2025-02-11 07:25 | BD_ITS ---
PROCEDURE: DEXA BONE DENSITY STUDY 02/11/2025 REASON FOR EXAM: F, age 70 y/o . TECHNIQUE: DEXA BONE DENSITY STUDY COMPARISON: DEXA scan 02/07/2023 FINDINGS: BMD and T-SCORES Lumbar spine: 0.930 g/cm2, T-score -0.8 Levels: L1 through L3 Change from prior: Statistically significant BMD increase of 6.6%. Left femoral neck: 0.619 g/cm2, T-score -2.1 Femoral neck comparison data not recommended for monitoring change. Prior T-score -2.0 Left total hip: 0.865 g/cm2, T-score -0.6 Change from prior: No significant change in BMD.. Right femoral neck: 0.689 g/cm2, T-score -1.4 Femoral neck comparison data not recommended for monitoring change. Prior T-score -2.1 Right total hip: 0.8 C6-7 g/cm2, T-score -0.6 Change from prior: No significant change in BMD.. The World Health Organization has defined the following categories based on bone density: Normal bone density: T-score equal to or greater than -1.0 Osteopenia: T-score between -1.0 and -2.5 Osteoporosis: T-score equal to or less than -2.5 FRAX (or Comparable) Fracture Risk Assessment: 10 Year Probability of Fracture: Major Osteoporotic Fracture: 12% Hip Fracture: 2.3% (Note: FRAX is not to be reported in setting of normal range bone density, osteoporosis on DEXA, known history of osteoporosis, prior osteoporotic hip or vertebral fracture, or for any patient undergoing pharmacological treatment for bone loss.) The National Osteoporosis Foundation (NOF) recommends pharmacological treatment for patients with a FRAX 10-year risk of 3% or higher for a hip fracture, or 20% or higher for a major osteoporotic fracture, to prevent osteoporosis and reduce fracture risk. The patient does not meet the pharmacological treatment recommendations for prevention of osteoporosis. BD/Dexa Bone Density Study IMPRESSION: OSTEOPENIA. Reading Location: [id number]
== END | disposition home or self-care (01) ==
LOC: OPBD 07:20
PROVIDERS: PCP Family Medicine
DX: Z13.820 Encounter for screening for osteoporosis (principal); N95.9 Unspecified menopausal and perimenopausal disorder; Z12.31 Encounter for screening mammogram for malignant neoplasm of breast
CPT/HCPCS: 77063; 77067; 77080

== ENCOUNTER → 2025-03-26 | Outpatient (CLI) | payer MEDICARE, OTHER, SELFPAY | END | disposition home or self-care (01) | LOC: MFPLAB 08:22 | PROVIDERS: PCP Family Medicine; Visit Provider Family Medicine | DX: R73.03 Prediabetes (principal) | CPT/HCPCS: 36415; 83036 ==

== ENCOUNTER 2025-06-24 09:05 | Outpatient (CLI) | payer MEDICARE, OTHER, SELFPAY ==
[2025-06-24 10:07] LABS: Hematocrit 37.7 % (37-47); Hemoglobin 12.8 g/dL (12.0-15.0); Mean Corp Hgb Conc 34.0 g/dL (32-36); Mean Corpuscular Volume 92.6 fL (81-99); Mean Platelet Vol. 10.2 fl (6.2-12.0); Platelet Count 231 K/mm3 (150-450); RBC Distribution Width CV 12.6 % (11.6-14.6); RBC Distribution Width SD 42.7 fl (35.1-43.9); Red Blood Count 4.07 M/mm3 (4.2-5.4); White Blood Count 5.7 K/mm3 (4.4-11.0)
[2025-06-24 13:11] LABS: AST(SGOT) 22 U/L (<=31); Alanine Aminotransfer ALT/SGPT 24 U/L (<=34); Albumin, Serum 4.4 g/dL (3.4-4.8); Alkaline Phosphatase 75 U/L (35-104); Anion Gap 13 (5-15); BUN 10 mg/dL (4-19); BUN/Creat Ratio 12.9 RATIO (10-20); Calcium,Total 9.5 mg/dL (7.6-11.0); Carbon Dioxide 24.7 mmol/L (21.0-32.0); Chloride 101 mmol/L (98-108); Cholesterol 153 mg/dL (<=200); Globulin 3.1 g/dL (2.2-4.2); Glucose 105 mg/dL (70-99); Low Density Lipoprotein Calc. 63 mg/dL; Potassium 4.2 mmol/L (3.3-5.1); Triglycerides 107 mg/dL; Very Low Density Lipoprotein 21 mg/dL (5-40); Vitamin D,25 Hydroxy 69.0 ng/mL (30-100); cholesterol:hdl ratio screen 2.15
== END 2025-06-24 23:59 | disposition home or self-care (01) ==
LOC: MTLAB 09:06
PROVIDERS: PCP Family Medicine; Referring Provider Family Medicine; Visit Provider Family Medicine
DX: I10 Essential (primary) hypertension (principal); E78.5 Hyperlipidemia, unspecified; E03.9 Hypothyroidism, unspecified; R73.03 Prediabetes
CPT/HCPCS: 36415; 80053; 80061; 82306; 83036; 84443; 85027